=== PATIENT | male | born 1940 | race Caucasian/White ===

== ENCOUNTER 2016-09-19 08:58 | Outpatient (CLI) ==
[2016-09-19 13:50] VITALS: BMI 35.8
== END 2016-09-19 08:59 ==
LOC: AMBL 08:58
PROVIDERS: ATTEND Emergency Medicine
DX: R11.2 Nausea with vomiting, unspecified (principal)

== ENCOUNTER 2016-09-19 09:08 | Inpatient (IN) ==
--- NOTE | 2016-09-19 09:34 | ED.PDOC ---
General ED Provider: Dr. OLGA LIDIA ATKINS JR Chief Complaint: Respiratory Complaint Stated Complaint: 3 days cough, sore throat, nasal congestion, vomiting today; EMS martina prehosp now improved 99.0 83 20 93% 143/62 810 took peptobismol at home Time Seen by Physician: 09:32 Mode of Arrival: Ambulance Information Source: Patient, Family, EMT Exam Limitations: No limitations Primary Care Provider: GLENIS JONAS Nursing and Triage Documentation Reviewed and Agree: No Review of Systems - Review Of Systems Constitutional: Reports: Fever, Malaise Eyes: Reports: No symptoms Ears, Nose, Mouth, Throat: Reports: Nose pain, Nose discharge, Throat pain Respiratory: Reports: Cough, Other Cardiac: Reports: No symptoms GI: Reports: Diarrhea, Nausea, Vomiting (abd. soft with tenderness to right lower quadrant on palpation.[ End ) : Reports: No symptoms Musculoskeletal: Reports: No symptoms Skin: Reports: No symptoms Neurological: Reports: No symptoms Endocrine: Reports: No symptoms Hematologic/Lymphatic: Reports: No symptoms All Other Systems: Other Past Medical History - Past Medical History Previously Healthy: No Endocrine: Reports: Unknown, Other Cardiovascular: Reports: Unknown Respiratory: Reports: Unknown Hematological: Reports: Unknown Gastrointestinal: Reports: Unknown Genitourinary: Reports: Unknown Neuro/Psych: Reports: Unknown Musculoskeletal: Reports: Unknown Cancer: Reports: Unknown - Surgical History General Surgical History: Reports: Cholecystectomy (gallbladder), Orthopedic ( right knee surgery), Unknown - Family History Family History: Reports: Unknown - Social History Smoking Status: Former smoker Hx Substance Use: No Alcohol Screening: Occasionally Physical Exam - Physical Exam Appearance: Ill-appearing, Obese Ill-appearing: Moderate Pain Distress: Moderate Eyes: LAURA, EOMI, Conjunctiva clear ENT: Ears normal, Nose normal, Oropharynx normal Neck: Supple Respiratory: Airway patent, Breath sounds diminished, Rhonchi Cardiovascular: RRR, Pulses normal, No rub, No murmur GI/: Soft, Nontender, No masses, Bowel sounds normal, No Organomegaly Musculoskeletal: Normal strength, ROM intact, No edema, No calf tenderness Skin: Warm, Dry, Normal color Neurological: Sensation intact, Motor intact, Reflexes intact, Cranial nerves intact, Alert, Oriented Psychiatric: Affect appropriate, Mood appropriate Interpretation - Radiology Interpretation Radiology Interpretation By: Radiologist Radiology Results: Positive Exam Interpreted: CXR (patchy infiltrate right medial base) Radiology Interpretation By: Radiologist Radiology Results: Negative Exam Interpreted: CT Scan (abdomen with RLL PNEUMONIA) - EKG Interpretation Time of EKG #1: 10:00 Rate: Normal Rhythm: Sinus Ectopy: PVCs, PACs Colver: NL ST Segment: Normal Critical Care Note - Critical Care Note Total Time (mins): 10 Course - Course Hematology/Chemistry: 09/19/16 09:50 09/19/16 09:50 Orders, Labs, Meds: Lab Review 09/19/16 09/19/16 09:45 09:50 WBC 18.37 H RBC 4.46 L Hgb 14.8 Hct 43.0 MCV 96.4 H MCH 33.2 H MCHC 34.4 RDW Coeff of [place] 13.4 Plt Count 191 Immature Gran % (Auto) 0.6 Neut % (Auto) 90.5 Lymph % (Auto) 3.7 L Preble % (Auto) 5.1 Eos % (Auto) 0.0 Baso % (Auto) 0.1 Immature Gran # (Auto) 0.1 Neut # 16.6 H Lymph # 0.7 Preble # 0.9 Eos # 0.0 Baso # 0.0 Sodium 133 L Potassium 4.0 Chloride 99 Carbon Dioxide 21 L Anion Gap 17.0 BUN 19 H Creatinine 1.06 Estimated GFR (MDRD) 68.00 BUN/Creatinine Ratio 17.92 Glucose 178 H Calcium 9.8 Total Bilirubin 1.56 H AST 24 ALT 18 Alkaline Phosphatase 89 Total Protein 7.7 Albumin 3.2 L Globulin 4.5 Albumin/Globulin Ratio 0.71 Amylase 26 Lipase 6 L H. pylori IgG Antibody Positive Influenza A (Rapid) Negative Influenza B (Rapid) Negative Orders Category Date Time Status EKG-(ED ONLY) Stat CARDIO 09/19/16 09:42 Completed NEBULIZER TREATMENT Stat CARDIO 09/19/16 11:14 Completed ED IV/MEDIPORT/POWERPORT .ONCE EMERGENCY 09/19/16 09:43 Active AMYLASE Stat LAB 09/19/16 09:50 Completed CBC W/ AUTO DIFF Stat LAB 09/19/16 09:50 Completed COMPREHENSIVE METABOLIC PANEL Stat LAB 09/19/16 09:50 Completed H. PYLORI SCREEN Stat LAB 09/19/16 09:50 Completed LIPASE Stat LAB 09/19/16 09:50 Completed MOLECULAR GROUP A STREP Stat LAB 09/19/16 10:14 Results PROCALCITONIN Stat LAB 09/19/16 Completed RAPID FLU A/B Stat LAB 09/19/16 09:45 Completed RAPID FLU A/B Stat LAB 09/19/16 10:13 Uncollected STREP SCREEN Stat LAB 09/19/16 10:14 Results URINALYSIS C & S IF INDICATED Stat LAB 09/19/16 09:43 Uncollected 0.9 % Sodium Chloride [Saline Flush] MEDS 09/19/16 09:43 Active 1 syr IVF PRN PRN Acetaminophen [Tylenol] MEDS 09/19/16 10:42 Discontinued 650 mg PO ONCE STA Ceftriaxone Sodium [Rocephin] MEDS 09/19/16 11:49 Discontinued 1 gm .ROUTE .STK-MED ONE Ceftriaxone Sodium [Rocephin] 1 gm MEDS 09/19/16 11:33 Discontinued 0.9 % Sodium Chloride [Sodium Chloride] 50 ml IV ONCE Ipratropium/Albuterol Neb [Duoneb] MEDS 09/19/16 11:14 Discontinued 1 vial NEB ONCE STA Sodium Chloride 0.9% [Sodium Chloride] 1,000 ml MEDS 09/19/16 09:44 Discontinued IV BOLUS CHEST, 2 VIEWS PA & LAT Stat RADS 09/19/16 09:[address] ABDOMEN/PELVIS WO CONTRAST Stat RADS 09/19/16 09:42 Completed Medications Generic Name Dose Route Start Last Admin Trade Name Freq PRN Reason Stop Dose Admin Sodium Chloride 1 syr 09/19/16 09:43 09/19/16 12:03 Saline Flush IVF 1 syr PRN PRN Administration To flush IV Discontinued Medications Generic Name Dose Route Start Last Admin Trade Name Freq PRN Reason Stop Dose Admin Acetaminophen 650 mg 09/19/16 10:42 09/19/16 11:57 Tylenol PO 09/19/16 10:43 650 mg ONCE STA Administration Albuterol/Ipratropium 1 vial 09/19/16 11:14 09/19/16 11:28 Duoneb NEB 09/19/16 11:15 1 vial ONCE STA Administration Sodium Chloride 1,000 mls @ 1,000 mls/hr 09/19/16 09:44 09/19/16 10:28 Sodium Chloride IV 09/19/16 10:43 1,000 mls/hr BOLUS STA Administration Ceftriaxone Sodium 1 gm/ 50 mls @ 75 mls/hr 09/19/16 11:33 09/19/16 11:58 Sodium Chloride IV 09/19/16 12:12 75 mls/hr ONCE STA Administration Vital Signs: Temp Pulse Resp BP Pulse Ox 09/19/16 09:09 99.0 F 83 20 143/62 H 93 L Departure - Departure Time of Disposition: 13:00 Disposition: ADMITTED INPATIENT Discharge Problem: Right lower lobe pneumonia Condition: Fair Pt referred to PMD for follow-up: Yes Allergies/Adverse Reactions: Allergies codeine Adverse Reaction (Verified 09/19/16 09:15) morphine Adverse Reaction (Verified 09/19/16 09:15) Home Medications: Ambulatory Orders Allopurinol 300 mg PO DAILY 07/06/15 Aspirin [Aspirin Chewable] 81 mg PO DAILYWM 07/06/15 Folic Acid 1 mg PO DAILY 07/06/15 Levothyroxine Sodium [Synthroid] 75 mcg PO QDAC 07/07/15
[2016-09-19] MEDS ORDERED: SODIUM CHLORIDE 1,000 ML IV STA (09:44)
[2016-09-19 10:01] LABS: BASOPHILS % (AUTO) 0.1 % (0.0-3.0); HEMOGLOBIN 14.8 g/dl (14.0-18.0); IMMATURE GRANULOCYTE % (AUTO) 0.6 % (0.0-5.0); LYMPHOCYTES # (AUTO) 0.7 K/uL (0.60-3.4); LYMPHOCYTES % (AUTO) 3.7 (10.0-50.0); MEAN CORPUSCULAR HEMOGLOBIN 33.2 pg (27.0-31.0); MEAN CORPUSCULAR HGB CONC 34.4 (31.8-35.4); MEAN CORPUSCULAR VOLUME 96.4 fl (80.0-94.0); MONOCYTES # (AUTO) 0.9 K/uL (0.4-2.0); MONOCYTES % (AUTO) 5.1 (0-10); NEUTROPHILS # (AUTO) 16.6 K/ul (2.0-6.9); NEUTROPHILS % (AUTO) 90.5; PLATELET COUNT 191 10^3/uL (140-440); RED BLOOD COUNT 4.46 10^6/ul (4.70-6.10); WHITE BLOOD COUNT 18.37 K/ul (4.2-10.2)
[2016-09-19 10:13] LABS: H. PYLORI ANTIBODY POSITIVE (NEGATIVE); H.PYLORI INTERNAL QC INTERNAL QC VALID
[2016-09-19 10:21] LABS: FLU INTERNAL QC INTERNAL QC VALID; RAPID FLU A NEGATIVE (NEGATIVE); RAPID FLU B NEGATIVE (NEGATIVE)
[2016-09-19 10:26] LABS: ALBUMIN 3.2 g/dL (3.4-5.0); ALBUMIN/GLOBULIN RATIO 0.71; BILIRUBIN,TOTAL 1.56 mg/dL (0.00-1.20); BUN/CREATININE RATIO 17.92; CALCIUM 9.8 mg/dL (8.2-10.2); CREATININE 1.06 mg/dL (0.60-1.10); TOTAL PROTEIN 7.7 g/dL (5.8-8.1)
--- NOTE | 2016-09-19 10:34 | DI ---
Examination: Two views of the chest. HISTORY: Cough. COMPARISON: 08/22/2015. FINDINGS: The patient is rotated to the right. Cardiomediastinal silhouette appears largely unchan ged in overall size and configuration given likely rotation. Minimal patchy opacity is suspected at the right medial base. There is no other definitive focal pulmonary infiltrate. There is no signi ficant pleural fluid. Osseous structures are without significant abnormalities. IMPRESSION: Exam somewhat limited by rotation. Patchy opacity at the right medial base likely localizing posteriorly on the lateral view. May repr esent developing pneumonia. Recommend follow-up exam to ensure resolution. Prominent right mediastinum may be due to rotation.
[2016-09-19] MEDS ORDERED: TYLENOL PO STA (10:42)
--- NOTE | 2016-09-19 10:50 | CT ---
EXAM: CT ABDOMEN AND PELVIS HISTORY: Right lower quadrant pain, history of cholecystectomy. Nausea and vomiting. TECHNIQUE: CT abdomen and pelvis without intravenous contrast. Images were reconstructed using 5 m m section thickness. Reformations were prepared. COMPARISON: 07/06/2015 FINDINGS: Diagnostic limitations exist without including contrast enhanced images. No obvious focal hepatic o r splenic lesions. Gallbladder is absent. Severe fatty replacement of the pancreas. No adrenal no dule is obvious. Mild nonspecific bilateral perinephric fat stranding. Both kidneys have a few pun ctate internal densities which could represent vascular calcifications or tiny calculi. There is no hydronephrosis or evidence of ureteral obstruction/calculus. Mild atherosclerotic disease of the a chadd. Tiny sliding hiatal hernia. Normal appendix. Unremarkable bowel gas pattern. Urinary bladder is n ormal. Minimal prominence of the prostate gland. No ascites. There is a small fatty right inguina l hernia with a transverse neck of about 1.4 cm, questionable current clinical significance. Mildly prominent fatty left inguinal canal. Bones demonstrate degenerative facet and disc disease of the lower spine. Lung bases have mild consolidations bilaterally, more noticeable on the right. No pne umoperitoneum. IMPRESSION: 1. Lung base consolidations more noticeable on the right suggesting pneumonia. 2. Post cholecystectomy state. No gallbladder fossa abnormality. 3. Tiny sliding hiatal hernia. 4. Small fatty right inguinal hernia, questionable clinical significance. 5. Fatty replacement of the pancreas.
[2016-09-19] MEDS ORDERED: DUONEB NEB STA (11:14)
[2016-09-19] MEDS ORDERED: ROCEPHIN 1 GM in SODIUM CHLORIDE 50 ML IV STA (11:33)
[2016-09-19] MEDS ORDERED: ROCEPHIN ONE (11:49)
[2016-09-19] MEDS ORDERED: TYLENOL PO PRN (13:01)
[2016-09-19] MEDS ORDERED: ROBITUSSIN AC SYRUP PO PRN (13:08)
[2016-09-19 13:50] VITALS: BMI 35.8
[2016-09-19] MEDS: SODIUM CHLORIDE 1,000 ML IV SCH (14:46)
[2016-09-19] MEDS: ZITHROMAX 500 MG in SODIUM CHLORIDE 250 ML IV SCH (14:46)
[2016-09-19 16:40] LABS: BILIRUBIN,URINE 2+ (NEGATIVE); KETONES,URINE 1+ (NEGATIVE); LEUKOCYTE ESTERASE ,URINE Negative (NEGATIVE); NITRITE,URINE Negative (NEGATIVE); PH,URINE 5.5 (5-9); PROTEIN,URINE 1+ (NEGATIVE); URINE, BLOOD Trace-lysed (NEGATIVE)
[2016-09-19 16:41] LABS: ADD URINE MICROSCOPIC YES
[2016-09-19 16:51] LABS: BACTERIA,URINE TRACE (NOT PRESENT)
[2016-09-19] MEDS: ZOFRAN 4 MG/2 ML IVP PRN ×2 (16:57→22:00)
[2016-09-19] MEDS: ALBUTEROL 0.083% NEB NEB SCH ×2 (17:22→23:03)
[2016-09-20] MEDS: SODIUM CHLORIDE 1,000 ML IV SCH (03:23)
[2016-09-20] MEDS: ZOFRAN 4 MG/2 ML IVP PRN ×2 (03:30→09:05)
[2016-09-20] MEDS ORDERED: SODIUM CHLORIDE 1,000 ML IV SCH (04:40)
[2016-09-20 04:57] LABS: BASOPHILS % (AUTO) 0.2 % (0.0-3.0); HEMATOCRIT 38.7 % (42.0-52.0); HEMOGLOBIN 13.3 g/dl (14.0-18.0); IMMATURE GRANULOCYTE % (AUTO) 0.7 % (0.0-5.0); LYMPHOCYTES # (AUTO) 1.1 K/uL (0.60-3.4); LYMPHOCYTES % (AUTO) 5.4 (10.0-50.0); MEAN CORPUSCULAR HEMOGLOBIN 34.2 pg (27.0-31.0); MEAN CORPUSCULAR HGB CONC 34.4 (31.8-35.4); MEAN CORPUSCULAR VOLUME 99.5 fl (80.0-94.0); MONOCYTES # (AUTO) 1.5 K/uL (0.4-2.0); MONOCYTES % (AUTO) 7.8 (0-10); NEUTROPHILS # (AUTO) 16.9 K/ul (2.0-6.9); NEUTROPHILS % (AUTO) 85.9; PLATELET COUNT 186 10^3/uL (140-440); RED BLOOD COUNT 3.89 10^6/ul (4.70-6.10); WHITE BLOOD COUNT 19.63 K/ul (4.2-10.2)
[2016-09-20] MEDS: ALBUTEROL 0.083% NEB NEB SCH (05:09)
[2016-09-20 05:22] LABS: ALBUMIN 2.8 g/dL (3.4-5.0); ALBUMIN/GLOBULIN RATIO 0.68; ANION GAP 15.1; BILIRUBIN,TOTAL 0.96 mg/dL (0.00-1.20); BUN/CREATININE RATIO 17.69; CALCIUM 9.2 mg/dL (8.2-10.2); CREATININE 1.13 mg/dL (0.60-1.10); POTASSIUM 4.1 mmol/L (3.5-5.1); TOTAL PROTEIN 6.9 g/dL (5.8-8.1)
[2016-09-20] MEDS ORDERED: SYNTHROID PO SCH (06:30)
[2016-09-20] MEDS ORDERED: ASPIRIN CHEWABLE PO SCH (08:00)
[2016-09-20] MEDS: ZITHROMAX 500 MG in SODIUM CHLORIDE 250 ML IV SCH (08:13)
[2016-09-20] MEDS ORDERED: ROCEPHIN 1 GM in SODIUM CHLORIDE 50 ML IV SCH (09:00)
[2016-09-20] MEDS ORDERED: NON-FORMULARY MEDICATION (Allopurinol [Allopurinol] 300 MG) PO SCH ×22 (09:00)
[2016-09-20] MEDS ORDERED: ZYLOPRIM PO SCH (09:00)
[2016-09-20] MEDS ORDERED: FOLIC ACID PO SCH (09:00)
[2016-09-20 10:41] VITALS: BP 100/50; TEMP 98.8
[2016-09-20 10:54] LABS: TROPONIN I 0.055 ng/ml (0.0000-0.4000)
[2016-09-20 10:57] LABS: CREATINE KINASE MB 7.4 ng/ml (0.0-3.6)
--- NOTE | 2016-09-20 13:28 | HP ---
SOURCE: The source of this information is prior knowledge of Kamar, review of his current chart, his office records as well as discussion with he; all considered reliable. PATIENT PROFILE: Mr. Bonner is a 76-year-old male resident of [place]; he was cooperative. CHIEF COMPLAINT: "I keep getting sicker." BRIEF HISTORY OF PRESENT ILLNESS: He visited with family in [place] around [place]. He developed nasal congestion and a cough. He came home after being there one-half of a week and for the last two weeks at home he has had cough and fatigue/malaise. At times, he would feel somewhat better and even at times he would feel like he was running a fever. Two days prior to admission, he started having intermittent vomiting. This was with a tendency toward constipation with no real diarrhea or significant abdominal pain. He called the day of admission and before we could work him in he presented to the ER. He was felt to have pneumonia based clinically on the fact that he was coughing and his chest x-ray was suspicious for something on the right early on. This gentleman did have pneumonia in his left lung in July/August of last year; chest x-rays were followed and did go to resolution. He smoked from age 20, greater than one pack per day stopping at age 28. He was raised around smoking but after leaving home at around age 22 , secondary smoke stopped. He has no known chronic lung disease. PAST HISTORY: CHILDHOOD: Unremarkable. ALLERGIES/INTOLERANCE: CODEINE (HEADACHE), MORPHINE (NAUSEA) CURRENT MEDICATIONS: 1. Folic acid 1 mg a day 2. Aspirin 81 mg a day 3. Allopurinol 300 mg a day 4. Synthroid 75 mcg a day 5. B12 1000 mcg/cc 1 cc intramuscularly each month HOSPITALIZATIONS/SURGERIES/PROCEDURES: He had colonoscopy with hiatal hernia and diverticular disease [facility], 04/06; a colonoscopy with polyps, [facility], Dr. Johnson 07/17/11 to repeat in five years and ERCP with sphincterotomy, [facility], 01/26/12. He had right knee arthroscopic meniscus tear/repair, [facility], 2005; lap gallbladder, Dr. Caceres", [facility], 01/25/12. He was hospitalized at [facility] 01/23/12 through 01/27/12 for his gallbladder disease; Dr. Fuller admitted him to [facility], 07/06 through 07/09/15 for left lower lobe pneumonia. FAMILY HISTORY: Heart disease in father; diabetes in sister and maternal uncle; breast cancer in paternal aunt, lung cancer in father and maternal uncle and unknown cancer in maternal aunt. HABITS: Smoker age 20, greater than one pack per day stopping age 28 with secondhanded smoke through his childhood stopping at age 22. Alcohol from age 20 a couple of times a week, no ilicit drugs. 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 He has two adopted children. REVIEW OF SYSTEMS: GENERAL: He has been fatigued. There has been no injury. INTEGUMENT: No open sores or rash. HEENT: Some diffuse headache, no visual change. NECK: No pain or mass. CHEST: No hemoptysis or orthopnea. CARDIOVASCULAR: No palpitations, exertional chest pain, ankle edema. GI: No melena, hematochezia. : No dysuria. MUSCULOSKELETAL/NEUROLOGIC: No swollen, sore or red joints. Neurologic: No weakness of extremities. PSYCHIATRIC: No confusion or memory loss. PHYSICAL EXAMINATION: VITALS: Temperature 98, pulse 75, respiratory rate 16, BP 102/75. GENERAL: Appropriate for age, well-kept white male who seems fatigued but in no acute distress. INTEGUMENT: Male pattern baldness. Eyegrounds are pink, non icteric sclerae. No ankle edema. HEENT: Facial asymmetry. Pupils equal, round, extraocular movements intact. NECK: No visible lymphadenopathy, thyromegaly, mass seen or felt and supple. CHEST: A few scattered crackles particularly the right; no dullness to percussion. CARDIOVASCULAR: S1, S2 without murmur or carotid bruits. Distal pulses intact. GI: Soft. No rebound, guarding, mass or tenderness. MUSCULOSKELETAL/NEUROLOGIC: Four quadrant movements of all extremities are equal. There is facial symmetry. Speech is clear. He is alert, oriented times three. ASSESSMENT/PROBLEM LIST: 0. 77-year-old white male - advanced age. 1. Allergies/intolerance - See above. 2. Procedural history - see above. 3. Family history - see above. 4. Hemorrhoidal disease on colonoscopy. 5. Diverticular disease on colonoscopy. 6. Colon polyp disease on colonoscopy. 7. Gastroesophageal reflux - clinical suspicion. 8. Fatty liver by labs. 9. Elevated fasting glucose being followed. 10. History of gout. 11. Hyperuricemia - Xyloprim treated. 12. Macrocytosis - B12 deficiency. 13. B12 deficiency - IM replaced. 14. Urolithiasis history. 15. Psoriasis. 16. Vitamin D deficiency. 17. Obesity. 18. Degenerative joint disease - diffuse. 19. Spinal degenerative joint disease. 20. Chronic low back pain - on and off. REASON FOR ADMISSION: # Nausea # Nausea and vomiting # Cough (fever and others) # Pneumonia - would be community acquired ([place] do [place]) # Fatigue PLAN: 1. IV fluids to assure hydration. 2. Daily labs for awhile and order as needed and adjust as needed. 3. Rocephin and Azithromax, i.e. the antibiotics commonly used for community acquired pneumonia. 4. Consider serial chest x-rays and as needed. 5. Try to maintain stability of other chronic problems or new issues that might arise. 6. Discharge planning from the onset; home and once he is afebrile, eating well and feeling better. MTDD
--- NOTE | 2016-09-25 08:54 | DS ---
PATIENT PROFILE: Mr. oBnner is a 76-year-old male resident of [place]; he was cooperative. CHIEF COMPLAINT: "I keep getting sicker." BRIEF HISTORY OF PRESENT ILLNESS: He visited with family in [place] around [place]. He developed nasal congestion and a cough. He came home after being there one-half of a week and for the last two weeks at home he has had cough and fatigue/malaise. At times, he would feel somewhat better and even at times he would feel like he was running a fever. Two days prior to admission, he started having intermittent vomiting. This was with a tendency toward constipation with no real diarrhea or significant abdominal pain. He called the day of admission and before we could work him in he presented to the ER. He was felt to have pneumonia based clinically on the fact that he was coughing and his chest x-ray was suspicious for something on the right early on. This gentleman did have pneumonia in his left lung in July/August of last year; chest x-rays were followed and did go to resolution. He smoked from age 20, greater than one pack per day stopping at age 28. He was raised around smoking but after leaving home at around age 22 , secondary smoke stopped. He has no known chronic lung disease. PAST HISTORY: CHILDHOOD: Unremarkable. ALLERGIES/INTOLERANCE: CODEINE (HEADACHE), MORPHINE (NAUSEA) CURRENT MEDICATIONS: 1. Folic acid 1 mg a day 2. Aspirin 81 mg a day 3. Allopurinol 300 mg a day 4. Synthroid 75 mcg a day 5. B12 1000 mcg/cc 1 cc intramuscularly each month HOSPITALIZATIONS/SURGERIES/PROCEDURES: He had colonoscopy with hiatal hernia and diverticular disease [facility], 04/06; a colonoscopy with polyps, [facility], Dr. Johnson 07/17/11 to repeat in five years and ERCP with sphincterotomy, [facility], 01/26/12. He had right knee arthroscopic meniscus tear/repair, [facility], 2005; lap gallbladder, Dr. Caceres", [facility], 01/25/12. He was hospitalized at [facility] 01/23/12 through 01/27/12 for his gallbladder disease; Dr. Fuller admitted him to [facility], 07/06 through 07/09/15 for left lower lobe pneumonia. FAMILY HISTORY: Heart disease in father; diabetes in sister and maternal uncle; breast cancer in paternal aunt, lung cancer in father and maternal uncle and unknown cancer in maternal aunt. HABITS: Smoker age 20, greater than one pack per day stopping age 28 with secondhand smoke through his childhood stopping at age 22. Alcohol from age 20 a couple of times a week, no ilicit drugs. 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 He has two adopted children. REVIEW OF SYSTEMS: GENERAL: He has been fatigued. There has been no injury. INTEGUMENT: No open sores or rash. HEENT: Some diffuse headache, no visual change. NECK: No pain or mass. CHEST: No hemoptysis or orthopnea. CARDIOVASCULAR: No palpitations, exertional chest pain, ankle edema. GI: No melena, hematochezia. : No dysuria. MUSCULOSKELETAL/NEUROLOGIC: No swollen, sore or red joints. Neurologic: No weakness of extremities. PSYCHIATRIC: No confusion or memory loss. PHYSICAL EXAMINATION: VITALS: Temperature 98, pulse 75, respiratory rate 16, BP 102/75. GENERAL: Appropriate for age, well-kept white male who seems fatigued but in no acute distress. INTEGUMENT: Male pattern baldness. Eyegrounds are pink, non icteric sclerae. No ankle edema. HEENT: Facial asymmetry. Pupils equal, round, extraocular movements intact. NECK: No visible lymphadenopathy, thyromegaly, mass seen or felt and supple. CHEST: A few scattered crackles particularly the right; no dullness to percussion. CARDIOVASCULAR: S1, S2 without murmur or carotid bruits. Distal pulses intact. GI: Soft. No rebound, guarding, mass or tenderness. MUSCULOSKELETAL/NEUROLOGIC: Four quadrant movements of all extremities are equal. There is facial symmetry. Speech is clear. He is alert, oriented times three. ASSESSMENT/PROBLEM LIST: 0. 77-year-old white male - advanced age. 1. Allergies/intolerance - See above. 2. Procedural history - see above. 3. Family history - see above. 4. Hemorrhoidal disease on colonoscopy. 5. Diverticular disease on colonoscopy. 6. Colon polyp disease on colonoscopy. 7. Gastroesophageal reflux - clinical suspicion. 8. Fatty liver by labs. 9. Elevated fasting glucose being followed. 10. History of gout. 11. Hyperuricemia - Zyloprim treated. 12. Macrocytosis - B12 deficiency. 13. B12 deficiency - IM replaced. 14. Urolithiasis history. 15. Psoriasis. 16. Vitamin D deficiency. 17. Obesity. 18. Degenerative joint disease - diffuse. 19. Spinal degenerative joint disease. 20. Chronic low back pain - on and off. REASON FOR ADMISSION: # Nausea # Nausea and vomiting # Cough (fever and others) # Pneumonia - would be community acquired ([place] do [place]) # Fatigue HOSPITAL COURSE: This gentleman was admitted and treated as a community acquired pneumonia with nebulized bronchodilators, IV antibiotics with Rocephin and oral Zithromax. He had some initial weakness when he was up; suggestion for orthostasis and he was given a 500 cc of fluid bolus (in addition to 1000 cc he received in the ER). He slept through most of the night. The nursing staff notified me about 9 a.m. that he was found on shift change to be hypoxic into the mid 80s. He was having tachycardia of atrial fibrillation with rapid ventricular response (this is new) and he was having jaw or shoulder pain. I went promptly to the hospital and found his hemodynamics to be stable and with oxygen supplementation him to be adequately oxygenating. His initial white count of 18 climbed to 19. His hemoglobin of 14.8 with fluids dropped to 13.3; note MCVs were slightly elevated. Repeat chemistries showed a GFR of 63 vs 68; his chemistries were actually unremarkable. His troponin was negative though his CK- MB was 7.4 and high. His EKG showed nothing otherwise acute. We transferred him to the Special Care Unit and started making arrangements for transfer to [facility]. We were very concerned that in addition to his rate driven jaw and chest pain that there might be more going on than just that; that we could end up needing invasive cardiology and pulmonary to become involved. Also note on admission his urine has specific gravity greater than 1.030 and his flu A and B were negative. H. Pylori IgG was incidentally positive. His chest x-ray showed nothing here acute. DISCHARGE ASSESSMENT/PROBLEM LIST (CHANGED FROM ADMISSION): # Pneumonia - right-sided early infiltrate with fever and others - appears community acquired # Nausea and vomiting - associated with # Fatigue - associated with # Dehydration - suspect (specific gravity 1.030 and others) # Hypotension - orthostasis # New atrial fibrillation # Tachycardia - of atrial fib # Chest pain (and others) - suggestive for angina equivalent PLAN: 1. Transfer to CCU at [facility] for direct admit PROGNOSIS: Guarded; condition stable. MTDD
== END 2016-09-20 10:25 | disposition short-term general hospital (02) | DRG 195 ==
LOC: ED 09:08 → MEDSURG A 12:47 → SCU 09-20 09:41
PROVIDERS: ADMIT Family Medicine; ATTEND Family Medicine
DX: J18.9 Pneumonia, unspecified organism (principal); R11.2 Nausea with vomiting, unspecified; R10.813 Right lower quadrant abdominal tenderness; R53.83 Other fatigue; B96.81 Helicobacter pylori [H. pylori] as the cause of diseases classified elsewhere; E86.0 Dehydration; I95.1 Orthostatic hypotension; R07.9 Chest pain, unspecified; R68.84 Jaw pain; I48.91 Unspecified atrial fibrillation; R09.02 Hypoxemia; R00.0 Tachycardia, unspecified; I20.9 Angina pectoris, unspecified; Z79.899 Other long term (current) drug therapy; Z87.01 Personal history of pneumonia (recurrent)
CPT/HCPCS: 36415; 80053; 81001; 82150; 82550; 82553; 83690; 84145; 84443; 84484; 85025; 86677; 87651; 87804; 87880; 93005; 93010; 94640; 96374; 99284

== ENCOUNTER 2016-09-20 10:30 | Outpatient (CLI) ==
[2016-09-19 13:50] VITALS: BMI 35.8
== END 2016-09-20 10:31 | disposition home or self-care (01) ==
LOC: AMBL 10:30
PROVIDERS: ATTEND Internal Medicine
DX: R07.9 Chest pain, unspecified (principal); I48.91 Unspecified atrial fibrillation; J18.9 Pneumonia, unspecified organism; R06.02 Shortness of breath; R06.6 Hiccough; R14.2 Eructation; R11.0 Nausea

== ENCOUNTER 2016-10-04 10:33 | Outpatient (CLI) ==
--- NOTE | 2016-10-04 11:06 | DI ---
EXAM: PA and lateral views of the chest HISTORY: Left lung pneumonia COMPARISON: Chest x-ray 09/19/2016 FINDINGS: The cardiomediastinal silhouette is normal. There is no pneumothorax or pleural effusion . Interval resolution of right lower lobe ground-glass consolidation. There is ground-glass and ai rway thickening in the lower lobe of the left lung. There is no consolidation, nodule or mass. The osseous structures are unremarkable. IMPRESSION: Minimal airway thickening and ground-glass in the left lower lobe suggestive of small airways inflam mation/infection. The right lower lobe ground-glass consolidation from prior exam has resolved.
== END 2016-10-04 10:34 | disposition home or self-care (01) ==
LOC: RAD 10:33
PROVIDERS: ATTEND Family Medicine
DX: J18.9 Pneumonia, unspecified organism (principal)

== ENCOUNTER 2018-06-07 11:12 | Emergency (ER) ==
[2018-06-07 11:13] VITALS: BMI 35.8
[2018-06-07 11:25] VITALS: BP 108/67; TEMP 99.7
--- NOTE | 2018-06-07 12:12 | CT ---
EXAM: CT scan of the abdomen and pelvis without contrast HISTORY: Abdominal pain, no bowel movements TECHNIQUE: Helical imaging of the abdomen pelvis was performed without contrast. 3 mm thin axial im ages and coronal and sagittal reconstructions were provided for interpretation. FINDINGS: The patient has had previous cholecystectomy. The pancreas, adrenal glands appear normal. The proximal ureters are normal size. The small bowel loops are normal caliber. There is no bowel wall thickening. There is mild dilatation of the transverse colon and descending colon and sigmoid colon and rectum by fecal material. There is no free air. The appendix appears normal. The helical images obtained through the pelvis demonstrate a normal appearance of the rectum, urinary bladder. There is no free fluid seen within the pelvis. Lung bases are clear. No lytic or blastic lesions are seen within the osseous structures. IMPRESSION: There is no bowel obstruction or acute inflammatory change seen within the abdomen and p lala. There is no ureteral obstruction. Mild constipation. Nonobstructing nephrolithiasis seen within the right kidney.
--- NOTE | 2018-06-07 12:29 | ED.PDOC ---
General ED Provider: Dr. COLLINS CUELLAR Chief Complaint: Abdominal Pain Stated Complaint: NO B.M. AND ABDOMINAL PAINX 4 DAYS HAS BEEN ON PAIN MEDS WHICH HE STOPPED Time Seen by Physician: 11:19 (SEEN WITH THE PT'S NURSE ) Mode of Arrival: Walk-In Information Source: Patient Exam Limitations: No limitations Primary Care Provider: GLENIS JONAS Nursing and Triage Documentation Reviewed and Agree: Yes Does patient meet sepsis criteria?: No System Inflammatory Response Syndrome: Not Applicable Sepsis Protocol: For patient's 13 years and over: Temp is 96.8 and below OR 101 and greater Pulse >90 BPM Resp >20/minute Acutely Altered Mental Status Are patient's symptoms suggestive of a new infection, such as: -Pneumonia -Skin, Soft Tissue -Endocarditis -UTI -Bone, Joint Infection -Implantable Device -Acute Abdominal Infection -Wound Infection -Meningitis -Blood Stream Catheter Infection -Unknown GI Complaint Exam - Abdominal Pain Complaint/Exam Onset: Gradual Duration: 3 TO 4 DAYS Symptoms Are: Still present Timing: Constant Initial Severity: Moderate Current Severity: Mild Location of Pain: Diffuse Character: Reports: Dull Aggravating: Reports: None Alleviating: Reports: None Associated Signs and Symptoms: Reports: Constipation. Denies: Diaphoresis, Fever, Cough, Chest pain, Dizziness, Back pain, Blood in stool, Dysuria, Urinary frequency, Decreased urine output, Decreased appetite, Discharge, Nausea , Vomiting, Diarrhea, Decreased activity AAA Risk Factors: Reports: None Cardiac Risk Factors: Reports: None Testicular Torsion Risk Factors: Reports: None Surgical Obstruction Risk Factors: Reports: None Related Surgical History: Reports: None Abdominal Findings: Present: None Differential Diagnoses: Constipation Review of Systems - Review Of Systems Constitutional: Reports: No symptoms Eyes: Reports: No symptoms Ears, Nose, Mouth, Throat: Reports: No symptoms Respiratory: Reports: No symptoms Cardiac: Reports: No symptoms GI: Reports: Abdominal pain, Constipated : Reports: No symptoms Musculoskeletal: Reports: No symptoms Skin: Reports: No symptoms Neurological: Reports: No symptoms Endocrine: Reports: No symptoms Hematologic/Lymphatic: Reports: No symptoms All Other Systems: Reviewed and Negative Past Medical History - Past Medical History Previously Healthy: No Endocrine: Reports: Unknown, Other Cardiovascular: Reports: Unknown Respiratory: Reports: Unknown Hematological: Reports: Unknown Gastrointestinal: Reports: Unknown Genitourinary: Reports: Unknown Neuro/Psych: Reports: Unknown Musculoskeletal: Reports: Unknown Cancer: Reports: Unknown - Surgical History General Surgical History: Reports: Cholecystectomy (gallbladder), Orthopedic ( right knee surgery), Unknown - Family History Family History: Reports: Unknown - Social History Smoking Status: Former smoker Hx Substance Use: No Alcohol Screening: Occasionally Physical Exam - Physical Exam Appearance: Well-appearing, No pain distress, Well-nourished Eyes: LAURA, EOMI, Conjunctiva clear ENT: Ears normal, Nose normal, Oropharynx normal Respiratory: Airway patent, Breath sounds clear, Breath sounds equal, Respirations nonlabored Cardiovascular: RRR, Pulses normal, No rub, No murmur GI/: Soft, Nontender, No masses, Bowel sounds normal, No Organomegaly Musculoskeletal: Normal strength, ROM intact, No edema, No calf tenderness Skin: Warm, Dry, Normal color Neurological: Sensation intact, Motor intact, Reflexes intact, Cranial nerves intact, Alert, Oriented Psychiatric: Affect appropriate, Mood appropriate Interpretation - Radiology Interpretation Radiology Interpretation By: Radiologist Radiology Results: No acute changes Critical Care Note - Critical Care Note Total Time (mins): 0 Course - Course Orders, Labs, Meds: Orders Category Date Time Status CT ABDOMEN/PELVIS WO CONTRAST Stat RADS 06/07/18 11:42 Completed Vital Signs: Temp Pulse Resp BP Pulse Ox 06/07/18 11:13 99.7 F H 110 H 20 108/67 94 L Departure - Departure Time of Disposition: 12:29 Disposition: HOME SELF-CARE Discharge Problem: Abdominal pain Instructions: Constipation (ED), Constipation (DC) Condition: Good Pt referred to PMD for follow-up: Yes IPMP verified?: No Additional Instructions: Please call your Family Physician as soon as possible to schedule a follow-up appointment. Allergies/Adverse Reactions: Allergies codeine Adverse Reaction (Verified 09/19/16 09:15) hydrocodone Adverse Reaction (Verified 06/07/18 11:25) morphine Adverse Reaction (Verified 09/19/16 09:15) Home Medications: Ambulatory Orders Allopurinol 300 mg PO DAILY 07/06/15 Aspirin [Aspirin Chewable] 81 mg PO DAILYWM 07/06/15 Folic Acid 1 mg PO DAILY 07/06/15 Levothyroxine Sodium [Synthroid] 75 mcg PO QDAC 07/07/15 Omeprazole 20 mg PO DAILY 06/07/18 Disposition Discussed With: Patient, Family
== END 2018-06-07 12:42 | disposition home or self-care (01) ==
LOC: ED 11:12
DX: R10.9 Unspecified abdominal pain (principal); K59.00 Constipation, unspecified
CPT/HCPCS: 99282

== ENCOUNTER 2018-06-11 08:58 | Outpatient (CLI) | END 2018-06-11 09:21 | disposition short-term general hospital (02) | LOC: AMBL 08:58 → EDSTATUS 12:45 | PROVIDERS: ATTEND Internal Medicine | DX: R11.2 Nausea with vomiting, unspecified (principal); R53.1 Weakness; R10.84 Generalized abdominal pain; I48.91 Unspecified atrial fibrillation ==

== ENCOUNTER 2018-06-12 13:05 | Outpatient (CLI) | END 2018-06-12 13:29 | disposition short-term general hospital (02) | LOC: AMBL 13:05 | PROVIDERS: ATTEND Internal Medicine | DX: R11.2 Nausea with vomiting, unspecified (principal); R53.1 Weakness; K59.00 Constipation, unspecified; R94.5 Abnormal results of liver function studies; R50.9 Fever, unspecified; R17 Unspecified jaundice; R06.02 Shortness of breath ==

== ENCOUNTER 2018-10-05 09:28 | Day surgery (SDC) ==
[2018-10-05] MEDS ORDERED: LIDOCAINE 1% 20 ML MDV ID STA (10:09)
[2018-10-05 10:14] VITALS: TEMP 97.6
[2018-10-05] MEDS ORDERED: SUBLIMAZE ONE (11:30)
[2018-10-05] MEDS ORDERED: VERSED ONE (11:30)
[2018-10-05] MEDS ORDERED: DIPRIVAN 20 ML VIAL IVP ONE (11:30)
[2018-10-05 13:01] VITALS: BP 125/69
--- NOTE | 2018-10-06 09:00 | OP ---
PROCEDURE: COLONOSCOPY TO THE CECUM. ENDOSCOPIST: Sang LALA M.D. INDICATION: HISTORY OF POLYPS INSTRUMENT: [id number]. MEDICATION: PER ANESTHESIA. PROCEDURE: The patient was positioned for colonoscopy. The digital rectal exam was negative. The colonoscope was inserted through the anus and advanced to the cecum. The cecum was identified using the ileocecal valve and the appendiceal orifice as landmarks. The scope was slowly withdrawn through an adequately prepped colon. [place] Bowel Prep Score equals 9. The exam was normal throughout. No evidence for polyp or mass. Retroflex exam was otherwise normal. The patient tolerated the procedure well without immediate complication. Withdraw time 9 minutes and 40 seconds. PLAN: 1. Suggest repeat colonoscopy for routine evaluation in 5 years. CC: Dr. Taj JAIN
== END 2018-10-05 12:50 | disposition home or self-care (01) ==
LOC: SURG 09:28
PROVIDERS: ATTEND Internal Medicine Gastroenterology
DX: Z86.010 Personal history of colon polyps (principal)
CPT/HCPCS: 00812; G0105

== ENCOUNTER 2018-10-23 13:07 | Outpatient (CLI) ==
--- NOTE | 2018-10-23 14:48 | DEXA ---
EXAM: Bone densitometry. History: Osteoporosis. Findings: Evaluation of the lumbar spine reveals a total bone mineral density of 0.979 grams per centimeter squ ared with T-score of negative 2.0. Evaluation of the left hip reveals a total bone mineral density of 0.794 grams per centimeter squared with T-score of negative 2.1. Evaluation of the right hip reveals a total bone mineral density of 0.782 grams per centimeter square d with T-score of negative 2.2. FRAX: 10-year probability for major osteoporotic fracture is 8.4% and 3.1% for hip fracture. Impression: Osteopenia of the lumbar spine and bilateral hips
== END 2018-10-23 13:08 | disposition home or self-care (01) ==
LOC: RAD 13:07
PROVIDERS: ATTEND Family Medicine
DX: M81.0 Age-related osteoporosis without current pathological fracture (principal); R29.6 Repeated falls; T14.8XXA Other injury of unspecified body region, initial encounter

== ENCOUNTER 2018-11-07 16:25 | Inpatient (IN) ==
[2018-11-07 17:09] VITALS: BMI 35.4
[2018-11-08] MEDS: SYNTHROID PO SCH (06:06)
[2018-11-08] MEDS: CALCIUM 500 + VIT D 200 MG TABLET PO SCH (08:33)
[2018-11-08] MEDS: ASPIRIN CHEWABLE PO SCH (08:33)
[2018-11-08] MEDS: COLACE PO SCH (08:34)
[2018-11-08] MEDS: ZYLOPRIM PO SCH (08:34)
[2018-11-08] MEDS: PRILOSEC PO SCH (08:34)
[2018-11-08] MEDS: FOLIC ACID PO SCH (08:34)
[2018-11-08] MEDS: NON-FORMULARY MEDICATION (Cyanocobalamin (Vitamin B-12) [Vitamin B12] 2,500 MCG) PO SCH (08:35)
[2018-11-08] MEDS ORDERED: VIT D3 PO SCH (09:00)
[2018-11-08] MEDS ORDERED: CALCIUM CARB CITRATE PO SCH (09:00)
[2018-11-08] MEDS ORDERED: NON-FORMULARY MEDICATION (Allopurinol [Allopurinol] 300 MG) PO SCH (09:00)
[2018-11-08] MEDS: TYLENOL PO PRN ×2 (13:26→22:56)
[2018-11-08] MEDS ORDERED: NORCO 5-325 PO PRN (18:04)
[2018-11-09] MEDS: SYNTHROID PO SCH (05:46)
[2018-11-09] MEDS: PRILOSEC PO SCH (05:46)
--- NOTE | 2018-11-09 08:21 | RS.PTINEVL ---
Subjective - Patient information Date of Evaluation: 11/08/18 Date of Arrival on Unit: 11/07/18 Admitted From:: Facility Transfer (transfer from [facility] for swing bed program) Diagnosis: OA L knee, s/p L TKR Usual Living Arrangement: With Spouse Living Arrangement Comments: Lives with spouse Home Environment: House, Level/No stairs, Rail Medical History: Hypertension, Arthritis (OA and gout) Medical History Comments:: dJD, cardiac arrhythmia, hypothyroidism, osteopenia, psoriasis, R wrist rx 3 weeks ago s/p fall LATEX ALLERGY?: No Surgical History: Knee Replacement (L TKR 11/03/18), Cholecystectomy Surgical History Comments:: R knee meniscus surgery, Medications: see chart Subjective Information/ Patient Comments:: pt states that he walked a good distance yesterday prior to dc from [facility] - Level of function Prior to this admission, the patient could do the following:: Independent Selfcare, Independent ADL's, Independent Ambulation, Drive Current Level of Function: Partially Dependent Current Equipment Used at Home: has a rollator rwx at home Pain Assessement - Location L knee Description: Sharp, Aching Intensity: 4 (increased to 6/10 with activity) Pain Behavior: Rubbing Site, Facial Grimacing Pain Aggravating Factors: Exercise/Activity, Standing, Walking Pain Alleviating Factors: Ice, Medication Interventions - Objective Patient Orientation: Person, Place, Time, Situation Observation: pt with sutures in place, no exudate noted from incicion, pitting edema LLE. Range of Motion - ROM Right Upper Extremity AROM: WFL's (except R wrist ROM) Left Upper Extremity AROM: WFL's Right Lower Extremity AROM: WFL's Left Lower Extremity AROM: Moderate limitation (L knee flex 82 ext -14) Muscle Strength - Muscle Strength Right Upper Extremity Strength: Mild Weakness (shld flex 4+/5, elbow flex/ext 4+ /5 wrist not tested due to fx) Left Upper Extremity Strength: Normal Right Lower Extremity Strength: Normal (grossly 5/5) Left Lower Extremity Strength: Mild Weakness (hip flex 4/5, knee flex/ext 3-/5, ankle DF/PF 4/5) Sensation - Sensation Right Upper Extremity Sensation: Intact/Normal Left Upper Extremity Sensation: Intact/Normal Right Lower Extremity Sensation: Intact/Normal Left Lower Extremity Sensation: Intact/Normal Palpation Palpation Findings: Tenderness (L knee) Balance - Sitting Balance and Reactions Static Sitting Balance: Good Dynamic Sitting Balance: Fair - Standing Balance and Reactions Static Standing Balance: Fair Dynamic Standing Balance: Poor Standing Equilibrium Reactions: Delayed Left, Delayed Right Standing Protective Reactions: Delayed Left, Delayed Right Functional Mobility - Bed Mobility Rolling R/L: Min Assist Scooting: Min Assist Supine to Sit: Min Assist - Transfers Sit to Stand: Min Assist, 1 person assist - Safety Awareness Safety Awareness: Good SHAHNAZ INDEX SCORE: 56 Ambulation - Ambulation Assistive Device Used: Platform Walker (platform rolling walker) Orthotic/Prosthetic Device: No Distance: 100ft Assistance needed with Ambulation: CGA, Min Assist, 1 person assist Gait Deviations: Forward posture, Short stride Ambulation Comments: pt with decreased heel strike toe off gait pattern Factors Affecting Ambulation: Decreased Balance, Pain, Weakness, Decreased ROM, Decreased Safety Treatment time - Units charged Gait trainin - Time with patient Length of Evaluation: 23 Total treatment time: 46 Patient Education - Education Patient Education: Activity Modification, Education of Plan of Care Teaching Recipient: Patient Teaching Methods: Discussion (discussion regarding POC) Assessment - Assessment Problem List:: Decreased level of function, Requires training/education, Decreased safety/Risk of falls, Weakness, Pain limits previous level of function Rehab Potential: Good Further Therapy Indicated?: Yes Candidate for Swing Bed for Therapy Services?: pt is a swing bed patient Evaluation Complexity: HISTORY: Medium, EXAM OF BODY SYSTEMS: Medium, CLINICAL PRESENTATION: Medium, CLINICAL DECISION MAKING: Medium Short Term Goals GOAL #1: Improve L knee ROM flex 90 ext -8 Goal to be met by: 11/13/18 GOAL #2: pt demonstrate rolling and scooting up in bed independently Goal to be met by: 11/13/18 GOAL #3: Transfer sup to/from sit CGA Goal to be met by: 11/13/18 GOAL #4: Sit to/from stand CGA Goal to be met by: 11/13/18 GOAL #5: pt amb with platform rwx 140ft with CGA with improved heel strike Goal to be met by: 11/13/18 Desk Sergeant Goals GOAL #1: Improve L knee flex 98 ext 0 Goal to be met by: 11/18/18 GOAL #2: Transfer sup to/from sit to/from stand SBA Goal to be met by: 11/18/18 GOAL #3: amb functional household distances w platform rwx SBA, up/down steps CGA Goal to be met by: 11/18/18 Plan Plan of Care: Therapeutic EX, Therapeutic Activity Other:: gait training Frequency of Treatment: 1-2 X day, as tolerated Duration of Treatment: 10 days Anticipated Discharge Destination: Home Treatment Diagnosis (ICD 10 Codes): s/p L TKR. R26.2 difficulty walking. R 26.81 balance impaired. M62.81 general weakness Has the Physician been added for Co-signature?: Yes
[2018-11-09] MEDS: ASPIRIN CHEWABLE PO SCH (08:48)
[2018-11-09] MEDS: COLACE PO SCH (08:49)
[2018-11-09] MEDS: NON-FORMULARY MEDICATION (Cyanocobalamin (Vitamin B-12) [Vitamin B12] 2,500 MCG) PO SCH (08:49)
[2018-11-09] MEDS: ZYLOPRIM PO SCH (08:49)
[2018-11-09] MEDS: CALCIUM 500 + VIT D 200 MG TABLET PO SCH (08:49)
[2018-11-09] MEDS: FOLIC ACID PO SCH (08:49)
--- NOTE | 2018-11-09 13:56 | RS.OTINEVL ---
Subjective - Patient information Date of Evaluation: 11/09/18 Date of Arrival on Unit: 11/07/18 Admitted From:: Facility Transfer Usual Living Arrangement: With Spouse Living Arrangement Comments: Pt lives with spouse in his house. Pt has a ramp and 2 steps to come into the back door. Pt has a corner walk in shower that he will use when he gets home. Medical History Comments:: Gallbladder surgery, psoriasis, osteoporosis, atrial fib., cholecystectomy, GERD, DJD, R wrist fracture, L TKA. Surgical History: Knee Replacement, Other (Gall bladder removed.) Surgical History Comments:: Gallbladder, Right meniscus repair, ERCP 2018, L TKA , cholecystectomy Subjective Information/ Patient Comments:: "I fractured this wrist 2 weeks ago before the surgery." - Level of function Prior to this admission, the patient could do the following:: Independent Selfcare, Independent ADL's, Independent Ambulation, Drive Abilities prior to this admission: Patient independent with self care management, walked independently and drove. Current Level of Function: Partially Dependent Current Equipment Used at Home: has a rollator rwx at home Pain Assessment - Pain Pain Score: 8 Side: left Pain Location Body Site: Knee Pain Aggravating Factors: Changing Position, Exercise/Activity, Sitting, Walking Pain Alleviating Factors: Ice, Medication Interventions - Objective Patient Orientation: Person, Place, Time, Situation Current Interventions: IV's Observation: Pt has edema of the LLE, has SOA with activity, does not like to stand very long. Pt has difficulty with bed mobility. Interventions - ROM Right Upper Extremity AROM: WFL's Left Upper Extremity AROM: WFL's - Strength Right Upper Extremity Strength: Mild Weakness Left Upper Extremity Strength: Mild Weakness - Sensation Right Upper Extremity Sensation: Intact/Normal Left Upper Extremity Sensation: Intact/Normal Balance - Sitting Balance Static Sitting Balance: Good Dynamic Sitting Balance: Good - Standing Balance Static Standing Balance: Fair Dynamic Standing Balance: Fair ADL Skills - Self Feeding Self Feeding: Supervision - Grooming Grooming: Min Assist - Bathing Bathing UE: Not Tested Bathing LE: Not Tested - Dressing Dressing UE: Independent Dressing LE: Max Assist, 1 person assist - Toilet Management Toileting Management: Min Assist, 1 person assist Functional Mobility - Bed Mobility Rolling R/L: CGA Scooting: Min Assist Supine to Sit: Min Assist Sit to Supine: Min Assist - Transfers Sit to Stand: Min Assist, 1 person assist Stand to Sit: Min Assist, 1 person assist Stand Pivot Transfers: Min Assist, 1 person assist - Ambulation Weight Bearing Status: FWB Assistive Device Used: Platform Walker Assistance needed with Ambulation: Min Assist - Safety Awareness Safety Awareness: Good SHAHNAZ INDEX SCORE: 62 Additional Treatment Performed - Additional units charged ADL: 19 - Time with patient Length of Evaluation: 25 Total treatment time: 44 Activities Do you enjoy playing games?: Yes Would you be interested in leaving your room for activities?: Yes Would you enjoy group activities?: Yes Do you have difficulty with your vision?: Yes What types of things do you enjoy doing? Any Hobbies?: TV, running cars, Patient Interests:: Reading Books/Magazines, Watching Television, Visiting/ Socializing Patient Education Patient Education: Education of diagnosis, Education of Plan of Care Teaching Recipient: Patient Teaching Methods: Discussion Assessment Problem List:: Decreased level of function, Requires training/education, Decreased safety/Risk of falls, Weakness, Pain limits previous level of function Rehab Potential: Good Further Therapy Indicated?: Yes Candidate for Swing Bed for Therapy Services?: He is in swing bed. Evaluation Complexity: HISTORY: Medium, EXAM OF BODY SYSTEMS: Medium, CLINICAL DECISION MAKING: Medium Short Term Goals - Goals GOAL 1: Pt to increase dyn. std. balance for sink level ADLS to Fair+. Goal to be met by: 11/13/18 GOAL 2: Pt to increase I of self care management to CGA. Goal to be met by: 11/13/18 GOAL 3: Pt to increase activity tolerance to 15 minutes for safety of self cares. Goal to be met by: 11/13/18 Penitentiary Goals GOAL 1: Pt to increase dyn. std. balance for sink level ADLS to Good-. Goal to be met by: 11/20/18 GOAL 2: Pt to increase I of self care management to Mod-I. Goal to be met by: 11/20/18 GOAL 3: Pt to increase activity tolerance to 20 minutes for safety of self cares. Goal to be met by: 11/20/18 Plan Plan of Care: Therapeutic EX, Neuromuscular Re-Educ, Therapeutic Activity, Self- Care/Home Management Modalities: Cold Pack/Cryotherapy Frequency of Treatment: 1-2 X day, as tolerated Duration of Treatment: 2 Weeks Anticipated Discharge Destination: Home Treatment Diagnosis (ICD 10 Codes): M62.81 Muscle weakness, Z74.1 Need for assistance with personal care. Has the Physician been added for Co-signature?: Yes
[2018-11-10] MEDS: PRILOSEC PO SCH (05:37)
[2018-11-10] MEDS: SYNTHROID PO SCH (05:38)
[2018-11-10] MEDS: TYLENOL PO PRN (07:29)
[2018-11-10] MEDS: COLACE PO SCH (08:19)
[2018-11-10] MEDS: CALCIUM 500 + VIT D 200 MG TABLET PO SCH (08:19)
[2018-11-10] MEDS: ASPIRIN CHEWABLE PO SCH (08:19)
[2018-11-10] MEDS: FOLIC ACID PO SCH (08:19)
[2018-11-10] MEDS: ZYLOPRIM PO SCH (08:19)
[2018-11-10] MEDS: NON-FORMULARY MEDICATION (Cyanocobalamin (Vitamin B-12) [Vitamin B12] 2,500 MCG) PO SCH (08:20)
[2018-11-10] MEDS: PERCOCET 5-325 PO PRN (21:01)
[2018-11-11] MEDS: SYNTHROID PO SCH (05:30)
[2018-11-11] MEDS: PRILOSEC PO SCH (05:30)
[2018-11-11] MEDS: FOLIC ACID PO SCH (09:22)
[2018-11-11] MEDS: COLACE PO SCH (09:22)
[2018-11-11] MEDS: ASPIRIN CHEWABLE PO SCH (09:22)
[2018-11-11] MEDS: ZYLOPRIM PO SCH (09:22)
[2018-11-11] MEDS: CALCIUM 500 + VIT D 200 MG TABLET PO SCH (09:23)
[2018-11-11] MEDS: NON-FORMULARY MEDICATION (Cyanocobalamin (Vitamin B-12) [Vitamin B12] 2,500 MCG) PO SCH (09:23)
[2018-11-11] MEDS: TYLENOL PO PRN (09:45)
[2018-11-11] MEDS: PERCOCET 5-325 PO PRN (20:57)
[2018-11-12] MEDS: SYNTHROID PO SCH (05:40)
[2018-11-12] MEDS: PRILOSEC PO SCH (05:41)
[2018-11-12] MEDS: CALCIUM 500 + VIT D 200 MG TABLET PO SCH (08:21)
[2018-11-12] MEDS: ASPIRIN CHEWABLE PO SCH (08:22)
[2018-11-12] MEDS: ZYLOPRIM PO SCH (08:22)
[2018-11-12] MEDS: FOLIC ACID PO SCH (08:22)
[2018-11-12] MEDS: COLACE PO SCH (08:22)
[2018-11-12] MEDS: NON-FORMULARY MEDICATION (Cyanocobalamin (Vitamin B-12) [Vitamin B12] 2,500 MCG) PO SCH (08:22)
--- NOTE | 2018-11-12 12:05 | DI ---
EXAM: Two views of the left knee. History: Left knee pain and swelling. Findings: No acute fracture or dislocation. Grossly intact left total knee arthroplasty hardware. Joint effusion is present. There is diffuse subcutaneous edema and anterior soft tissue swelling. Impression: 1. No acute osseous abnormality. 2. Grossly intact left total knee arthroplasty hardware. 3. Diffuse subcutaneous edema and anterior soft tissue swelling. 4. Joint effusion
--- NOTE | 2018-11-12 13:56 | US ---
EXAM: Left lower extremity venous Doppler. History: Left lower extremity pain and swelling. Technique: Multiple sonographic images through the left lower extremity were obtained. Color duplex Doppler was used to interrogate vascular flow. Findings: Partial flow with partial compression within the left superficial femoral vein. The rest of the left lower extremity venous structures demonstrate spontaneous flow with normal compression an d normal augmentation. Impression: Nonocclusive deep venous thrombosis involving the left superficial femoral vein. Critical results were given to Karen SHELBY by the technologist at the end of the examination.
[2018-11-12] MEDS: XARELTO PO SCH (16:57)
[2018-11-12] MEDS: MILK OF MAGNESIA PO PRN (22:25)
[2018-11-12] MEDS: PERCOCET 5-325 PO PRN (22:26)
[2018-11-13] MEDS: PRILOSEC PO SCH (06:04)
[2018-11-13] MEDS: SYNTHROID PO SCH (06:04)
[2018-11-13] MEDS: COLACE PO SCH (09:31)
[2018-11-13] MEDS: ZYLOPRIM PO SCH (09:31)
[2018-11-13] MEDS: FOLIC ACID PO SCH (09:33)
[2018-11-13] MEDS: XARELTO PO SCH ×2 (09:34→16:29)
[2018-11-13] MEDS: CALCIUM 500 + VIT D 200 MG TABLET PO SCH (09:35)
[2018-11-13] MEDS: NON-FORMULARY MEDICATION (Cyanocobalamin (Vitamin B-12) [Vitamin B12] 2,500 MCG) PO SCH (09:36)
[2018-11-13] MEDS: TYLENOL PO PRN ×2 (09:47→16:29)
[2018-11-13] MEDS: MILK OF MAGNESIA PO PRN (09:47)
[2018-11-13] MEDS: PERCOCET 5-325 PO PRN (22:42)
[2018-11-14] MEDS: SYNTHROID PO SCH (05:37)
[2018-11-14] MEDS: PRILOSEC PO SCH (05:37)
[2018-11-14] MEDS: XARELTO PO SCH ×2 (09:17→17:15)
[2018-11-14] MEDS: COLACE PO SCH (09:18)
[2018-11-14] MEDS: CALCIUM 500 + VIT D 200 MG TABLET PO SCH (09:18)
[2018-11-14] MEDS: ZYLOPRIM PO SCH (09:18)
[2018-11-14] MEDS: FOLIC ACID PO SCH (09:18)
[2018-11-14] MEDS: NON-FORMULARY MEDICATION (Cyanocobalamin (Vitamin B-12) [Vitamin B12] 2,500 MCG) PO SCH (09:19)
[2018-11-14] MEDS: TYLENOL PO PRN (09:26)
[2018-11-14] MEDS: PERCOCET 5-325 PO PRN (20:31)
[2018-11-15] MEDS: SYNTHROID PO SCH (05:44)
[2018-11-15] MEDS: PRILOSEC PO SCH (05:44)
[2018-11-15] MEDS: COLACE PO SCH (08:50)
[2018-11-15] MEDS: TYLENOL PO PRN ×2 (08:50→17:02)
[2018-11-15] MEDS: CALCIUM 500 + VIT D 200 MG TABLET PO SCH (08:51)
[2018-11-15] MEDS: ZYLOPRIM PO SCH (08:51)
[2018-11-15] MEDS: FOLIC ACID PO SCH (08:51)
[2018-11-15] MEDS: XARELTO PO SCH ×2 (08:52→17:02)
[2018-11-15] MEDS: NON-FORMULARY MEDICATION (Cyanocobalamin (Vitamin B-12) [Vitamin B12] 2,500 MCG) PO SCH (08:59)
[2018-11-15] MEDS: PERCOCET 5-325 PO PRN (21:10)
[2018-11-16] MEDS: PRILOSEC PO SCH (05:41)
[2018-11-16] MEDS: SYNTHROID PO SCH (05:41)
[2018-11-16] MEDS: ZYLOPRIM PO SCH (08:48)
[2018-11-16] MEDS: XARELTO PO SCH ×2 (08:49→18:02)
[2018-11-16] MEDS: COLACE PO SCH (08:49)
[2018-11-16] MEDS: CALCIUM 500 + VIT D 200 MG TABLET PO SCH (08:49)
[2018-11-16] MEDS: FOLIC ACID PO SCH (08:49)
[2018-11-16] MEDS: NON-FORMULARY MEDICATION (Cyanocobalamin (Vitamin B-12) [Vitamin B12] 2,500 MCG) PO SCH (08:57)
[2018-11-16] MEDS: PERCOCET 5-325 PO PRN ×2 (12:19→18:03)
[2018-11-17] MEDS: PRILOSEC PO SCH (05:48)
[2018-11-17] MEDS: SYNTHROID PO SCH (05:48)
[2018-11-17] MEDS: ZYLOPRIM PO SCH (09:14)
[2018-11-17] MEDS: TYLENOL PO PRN (09:14)
[2018-11-17] MEDS: CALCIUM 500 + VIT D 200 MG TABLET PO SCH (09:15)
[2018-11-17] MEDS: XARELTO PO SCH ×2 (09:15→16:50)
[2018-11-17] MEDS: FOLIC ACID PO SCH (09:15)
[2018-11-17] MEDS: COLACE PO SCH (09:15)
[2018-11-17] MEDS: NON-FORMULARY MEDICATION (Cyanocobalamin (Vitamin B-12) [Vitamin B12] 2,500 MCG) PO SCH (09:18)
[2018-11-17] MEDS: PERCOCET 5-325 PO PRN (20:34)
[2018-11-18] MEDS: PRILOSEC PO SCH (05:37)
[2018-11-18] MEDS: SYNTHROID PO SCH (05:37)
[2018-11-18] MEDS ORDERED: VITAMIN B-12 IM SCH (08:00)
[2018-11-18] MEDS: FOLIC ACID PO SCH (09:19)
[2018-11-18] MEDS: ZYLOPRIM PO SCH (09:20)
[2018-11-18] MEDS: XARELTO PO SCH ×2 (09:21→16:49)
[2018-11-18] MEDS: CALCIUM 500 + VIT D 200 MG TABLET PO SCH (09:21)
[2018-11-18] MEDS: COLACE PO SCH (09:21)
[2018-11-18] MEDS: NON-FORMULARY MEDICATION (Cyanocobalamin (Vitamin B-12) [Vitamin B12] 2,500 MCG) PO SCH (09:59)
[2018-11-18] MEDS: PERCOCET 5-325 PO PRN (20:35)
[2018-11-19] MEDS: PRILOSEC PO SCH (05:35)
[2018-11-19] MEDS: SYNTHROID PO SCH (05:35)
[2018-11-19] MEDS: CALCIUM 500 + VIT D 200 MG TABLET PO SCH (08:01)
[2018-11-19] MEDS: COLACE PO SCH (08:02)
[2018-11-19] MEDS: NON-FORMULARY MEDICATION (Cyanocobalamin (Vitamin B-12) [Vitamin B12] 2,500 MCG) PO SCH (08:02)
[2018-11-19] MEDS: FOLIC ACID PO SCH (08:02)
[2018-11-19] MEDS: ZYLOPRIM PO SCH (08:02)
[2018-11-19] MEDS: XARELTO PO SCH ×2 (08:03→16:41)
[2018-11-19] MEDS: PERCOCET 5-325 PO PRN (20:37)
[2018-11-20 05:30] VITALS: TEMP 97.9
[2018-11-20] MEDS: SYNTHROID PO SCH (05:49)
[2018-11-20] MEDS: PRILOSEC PO SCH (05:49)
[2018-11-20 06:05] VITALS: BP 117/69
[2018-11-20] MEDS: CALCIUM 500 + VIT D 200 MG TABLET PO SCH (08:37)
[2018-11-20] MEDS: ZYLOPRIM PO SCH (08:37)
[2018-11-20] MEDS: COLACE PO SCH (08:37)
[2018-11-20] MEDS: FOLIC ACID PO SCH (08:38)
[2018-11-20] MEDS: XARELTO PO SCH (08:38)
[2018-11-20] MEDS: NON-FORMULARY MEDICATION (Cyanocobalamin (Vitamin B-12) [Vitamin B12] 2,500 MCG) PO SCH (08:40)
== END 2018-11-20 16:15 | disposition home or self-care (01) | DRG 556 ==
LOC: MEDSURG B 16:25
PROVIDERS: ADMIT Family Medicine; ATTEND Family Medicine
DX: M25.562 Pain in left knee (principal); R26.89 Other abnormalities of gait and mobility; D64.9 Anemia, unspecified; R60.0 Localized edema; K59.00 Constipation, unspecified; Z79.01 Long term (current) use of anticoagulants
CPT/HCPCS: 36415; 80048; 80053; 85025; 87081; 97802

== ENCOUNTER 2018-12-11 13:12 | Outpatient (CLI) ==
--- NOTE | 2018-12-11 13:52 | US ---
EXAM: Left lower extremity venous Doppler History: Follow-up left lower extremity deep vein thrombosis Comparison: Left lower extremity venous Doppler 11/12/2018 Technique: Multiple sonographic images through the left lower extremity were obtained. Color duplex Doppler was used to interrogate vascular flow. Findings: The left common femoral, greater saphenous, profunda, superficial femoral, popliteal, maame luis enrique, posterior tibial and anterior tibial veins demonstrate spontaneous flow with normal compression and normal augmentation. Impression: No sonographic evidence for deep venous thrombosis.
== END 2018-12-11 13:13 | disposition home or self-care (01) ==
LOC: RAD 13:12
PROVIDERS: ATTEND Family Medicine
DX: Z51.81 Encounter for therapeutic drug level monitoring (principal); Z79.01 Long term (current) use of anticoagulants; Z86.718 Personal history of other venous thrombosis and embolism; R60.0 Localized edema; M79.604 Pain in right leg; Z98.890 Other specified postprocedural states

== ENCOUNTER 2018-12-28 13:39 | Outpatient (RCR) ==
--- NOTE | 2018-12-29 09:56 | RS.OPPTEV2 ---
Date of Note: 12/28/18 Visit #: 1 Number of visits approved by Insurance: n/a Date of Evaluation: 12/28/18 Payer Source: MEDICARE ([place]) Surgery Performed?: Yes (L TKR 11/03/18) Treatment Diagnosis: OA aftercare following total knee joint replacement History of Condition/Mechanism of Injury:: pt underwent L TKR per Dr. Simons 11/03/18. pt came to swing bed program and then returned home with home health PT. Prior Level of Function.....Patient was independent with: ADL's, Self Care, Ambulation/Mobility, Community Integration/Access Level of Function: pt lives with , is retired. Lives in home with several steps (split level home) Functional Limitations: Squatting, Ambulation Current Subjective/complaints:: pt states that he is doing pretty well, has been able to amb without the cane for a few days now. Treatment Side (optional): Left *Precautions: n/a Medical History Medical History: Hypertension, Arthritis (OA and gout) Medical History Comments:: psoriasis Surgical History: Knee Replacement, Cholecystectomy, Other (Gall bladder removed.) Surgical History Comments:: Right meniscus repair, ERCP 2018, L TKA Smoking Status: Current some day smoker Hx Home Medications: acetaminophen, allopurinol, aspirin, calcium carb- cholecalciferol, cyanocobalamin, folic acid, levothyroxine, omeprazole, oxycodone-acetaminophen, rivaroxaban, Patient's Goals: be stronger Pain Assessment - Pain Description Pain Location: L knee Pain Description: Aching Pain Description: 1-2 Functional Outcome Measure LE Functional Scale: 40 - G Codes & Severity Modifier G Codes & Modifier: n/a Source of G Code score: n/a Observation - Observation Inspection: pt presents with 2+ pitting edema BLE L worse than R Posture: Forward Head, Rounded Shoulders, Increased Thoracic Kyphosis Girth Measurement Lower: LLE knee 54cm, 10 cm below knee 48cm, 10 cm above knee 58 cm Gait - Gait Pattern General Gait Pattern Observation: Antalgic Gait Gait Comments: pt amb without AD with antalgic gait with decreased heel strike/ toe off, decreased L knee flex, increased lat sway. General Range of Motion: BUE WFL's. RLE WFL's. L hip and ankle WFL's Muscle Strength: BUE 5/5. RLE 5/5. LLE hip flex 4/5, ankle DF/PF 4/5 Knee ROM: Right WFL's Knee Muscle Strength: Right WFL's - Left Knee ROM Left Knee Extension: -8 Left Knee Flexion: 101 Knee ROM Limitations: Soft Tissue Tightness, Muscle Weakness - Left Knee Strength Left Knee Extension: 3- Fair- Left Knee Flexion: 3- Fair- Palpation Palpation Findings: Tenderness Comments:: in area of incision Sensation - Sensation Right Upper Extremity: Intact/Normal Left Upper Extremity: Intact/Normal Right Lower Extremity: Intact/Normal Left Lower Extremity: Intact/Normal Balance - Sitting Balance Static Sitting Balance: Normal Dynamic Sitting Balance: Normal - Standing Balance Static Standing Balance: Good Dynamic Standing Balance: Fair - Comments Balance Assessment Comments: gait speed: 0.72meters/sec consistent with limited community ambulator. dyn gait index: consistent with fall risk. Interventions - Exercise/Activities/Manual Therapy Exercises/Activities: pt performed quad sets with heel elevated, LAQ, SLR, standing heel raises, standing high stepping, and forward lunges. Manual Therapy: n/a HOME EXERCISE PROGRAM: pt given written HEP including: quad sets with heel elevated, standing heel raises, forward lunges - Charges Timed Code Treatment Minutes: 52 Total Treatment Time: 61 Procedures billed for this date of service:: chloe dillon, ex EVALUATION COMPLEXITY LEVEL EVALUATION COMPLEXITY LEVEL: HISTORY: Low, EXAM OF BODY SYSTEMS: Medium, CLINICAL PRESENTATION: Low, CLINICAL DECISION MAKING: Low Assessment Assessment: pt presents with pain L knee, decreased ROM, strength, balance as well as decreased gait sequencing. Feel pt would benefit from skilled PT for therex for ROM L knee as well as strengthening with a focus on balance as well as gait sequencing. Patient Education: Home Exercise Program, Education of Plan of Care Rehab Potential: Good Short Term Goals Goal #1: pt independent with initial HEP Goal to be met by: 01/11/19 Goal #2: L knee ext -5, flex 104 Goal to be met by: 01/11/19 Goal #3: Improve L LE strength 4-/5 Goal to be met by: 01/11/19 Goal #4: Improve dyn stand balance as noted by dyn gait index score Goal to be met by: 01/11/19 Skilled Nursing Goals Goal #1: pt amb with improved heel strike/toe off gait pattern no LOB Goal to be met by: 01/25/19 Goal #2: pt with improved gait speed to 0.9 m/s consistent with community ambulator Goal to be met by: 01/25/19 Goal #3: Improve dyn gait index score 21/24 consistent with low risk of falls Goal to be met by: 01/25/19 Goal #4: L knee ROM WFL's Goal to be met by: 01/25/19 Plan - Treatment to be Provided Procedures: Therapeutic Exercises, Therapeutic Activity, Gait Training, Manual Therapy, Massage, Patient Education Modalities: Cryotherapy, Hot Packs - Treatment Plan Frequency: 2 X week Duration: 4 weeks Dates of Pharmacologist Goals: 01/25/19 Expiration date of current Insurance Approval:: n/a - Treatment Code (1) Left knee pain Code(s): M25.562 - PAIN IN LEFT KNEE Qualifiers: Chronicity: chronic Qualified Code(s): M25.562 - Pain in left knee; G89.29 - Other chronic pain (2) Aftercare following left knee joint replacement surgery Code(s): Z47.1 - AFTERCARE FOLLOWING JOINT REPLACEMENT SURGERY; Z96.652 - PRESENCE OF LEFT ARTIFICIAL KNEE JOINT (3) Joint stiffness of knee Qualifiers: Laterality: left Qualified Code(s): M25.662 - Stiffness of left knee, not elsewhere classified (4) Gait difficulty Code(s): R26.9 - UNSPECIFIED ABNORMALITIES OF GAIT AND MOBILITY
== END 2018-12-29 23:59 ==
PROVIDERS: ATTEND Family Medicine
DX: R26.9 Unspecified abnormalities of gait and mobility (principal); Z98.890 Other specified postprocedural states; Z96.652 Presence of left artificial knee joint

== ENCOUNTER 2018-12-30 09:58 | Outpatient (RCR) ==
--- NOTE | 2018-12-30 11:41 | RS.OPPTDN ---
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 *Precautions: n/a Pain Assessment - Pain Description Pain Location: L knee Pain Description: Dull, Aching, Chronic Current Pain Intensity: 1-2/10 Interventions - Exercise/Activities/Manual Therapy Exercises/Activities: 50 mins. total,beginning on exercise bike x 5 mins. ,then progressed to bilateral leg press,1/15 each @ 75,90,105#,then 3/10 with L LE only @ 45 #.Supine exercises of QS,SAQ,.SLR.90/90 hamstring stretches .L knee AROM is 102,107 with stretch.Extension is -8 degrees. Total minutes of Exercise: 50 Manual Therapy: n/a Total minutes of Manual Therapy: 0 HOME EXERCISE PROGRAM: pt given written HEP including: quad sets with heel elevated, standing heel raises, forward lunges - Charges Timed Code Treatment Minutes: 45 Total Treatment Time: 5 Procedures billed for this date of service:: ex 3 Assessment: Patient has increased knee flexion at end of session after fatiguing the quads.He has moderate tightness in the L hamstrings today, improves after multiple reps. of contract-relax.We discussed to focus on the hamstring tightness to improve the knee extension ,and decreased the risk of leg length discrepancy. Patient Education: Home Exercise Program, Education of Plan of Care Patient demonstrates compliance with HEP?: Yes Short Term Goals Goal #1: pt independent with initial HEP Goal to be met by: 01/11/19 Progress towards Goal:: Progressing Goal #2: L knee ext -5, flex 104 Goal to be met by: 01/11/19 Progress towards Goal:: Progressing Goal #3: Improve L LE strength 4-/5 Goal to be met by: 01/11/19 Goal #4: Improve dyn stand balance as noted by dyn gait index score Goal to be met by: 01/11/19 Local Superintendent Goals Goal #1: pt amb with improved heel strike/toe off gait pattern no LOB Goal to be met by: 01/25/19 Goal #2: pt with improved gait speed to 0.9 m/s consistent with community ambulator Goal to be met by: 01/25/19 Goal #3: Improve dyn gait index score consistent with low risk of falls Goal to be met by: 01/25/19 Goal #4: L knee ROM WFL's Goal to be met by: 01/25/19 Plan Dates of Local Superintendent Goals: 01/25/19 Expiration date of current Insurance Approval:: na PLAN: Cont. skilled PT to increase strength and AROM in the L knee.
--- NOTE | 2019-01-05 10:13 | RS.CXNS ---
Date of scheduled appointment: 01/05/19 Type: No Show Reason for Cancel/NS: possibly out of town
--- NOTE | 2019-01-08 09:54 | RS.CXNS ---
Date of scheduled appointment: 01/08/19 Type: No Show Reason for Cancel/NS: unknown
--- NOTE | 2019-01-20 11:59 | RS.CXNS ---
Date of scheduled appointment: 01/20/19 Type: No Show
--- NOTE | 2019-01-28 08:37 | RS.OPPTDC ---
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 pt with multiple no show visits. 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 Current Complaints/Gains: pt states he has appt card for 01/20/19 however this date was 01/27/19. pt appears somewhat confused regarding appt times as well as date. 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 - Charges Timed Code Treatment Minutes: n/a Total Treatment Time: n/a Procedures billed for this date of service:: n/a Assessment Assessment: pt did not meet goals due to only seen for eval and 1 visit. Goals not met. 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
== END 2019-01-29 23:59 ==
PROVIDERS: ATTEND Family Medicine
DX: Z47.1 Aftercare following joint replacement surgery (principal); Z96.652 Presence of left artificial knee joint; R26.9 Unspecified abnormalities of gait and mobility; Z98.890 Other specified postprocedural states

== ENCOUNTER 2023-06-01 21:28 | Observation (INO) ==
[2023-06-01] MEDS ORDERED: LACTATED RINGERS 1,000 ML IV STA (21:45)
[2023-06-01] MEDS ORDERED: ZOFRAN 4 MG/2 ML IVP STA (21:45)
--- NOTE | 2023-06-01 21:55 | ED.PDOC ---
General ED Provider: Dr. KAREY TELLES MD Chief Complaint: Nausea/Vomiting Stated Complaint: N/V for 3 days and cut short vacation in [place]. Family tested positive for COVID. Vomited 3x today and 3x yesterday, yellow liquid. Occasional sharp pain R side of abdomen. No diarrhea. Had some chest pain this AM. Also dizzy on standing mostly like may passes out. Some headache also. Hx of AFib, pacer, hemochromatosis with phlebotomy every 2 month. Had heart cath this year, no blockages. Somewhat thirsty. Time Seen by Provider: 06/01/23 21:43 Mode of Arrival: Ambulance Information Source: Patient and EMT Exam Limitations: No limitations Primary Care Provider: GLENIS VANG Referred to ED by: Other (family) Nursing and Triage Documentation Reviewed and Agree: Yes Review of Systems Review Of Systems Constitutional: Reports Weakness and Loss of appetite; Denies Chills, Diaphoresis or Fever Eyes: Reports No symptoms Ears, Nose, Mouth, Throat: Denies Throat pain Respiratory: Reports No symptoms Cardiac: Reports Chest pain GI: Reports Abdominal pain, Nausea and Vomiting; Denies Constipated or Diarrhea : Reports No symptoms Musculoskeletal: Reports No symptoms Skin: Reports No symptoms and Bruising Neurological: Reports No symptoms, Anxiety and Depressed All Other Systems: Reviewed and Negative [facility] Social History (Updated 06/02/23 @ 02:01 by DESTINEE DÍAZ RN) Smoking and tobacco status: Former smoker Tobacco: How many years used: 1 (smoked for 1.5 years quit 1967) Smoking status stop date: 04/20/1968 Alcohol intake: current Alcohol intake frequency: holidays/special occasions only Previous attempts at quittin (rare occasional social drink) Physical Exam Physical Exam Appearance: Reports Well-appearing and No pain distress Ill-appearing: Mild Pain Distress: None Eyes: Reports LAURA and EOMI ENT: Reports Nose normal and Oropharynx normal Neck: Supple Respiratory: Reports Airway patent, Breath sounds equal and Rhonchi; Denies Wheezes or Retractions Cardiovascular: Reports RRR, Pulses normal and No murmur GI/: Reports Soft, Nontender, No masses, Bowel sounds normal and No Organomegaly; Denies Tender Musculoskeletal: Reports Normal strength, ROM intact and Edema Skin: Reports Warm and Dry Neurological: Reports Sensation intact, Motor intact, Reflexes intact, Cranial nerves intact, Alert and Oriented Psychiatric: Reports Affect appropriate and Mood appropriate Interpretation EKG Interpretation EKG Interpretation By: ED Physician Time of EKG #1: 22:00 Rate: Normal Rhythm: Other (paced) Piru: Left Interpretation: Ventricular paced rhythm, Abnormal EKG Physician Notification Case Discussed Physician Notified: Glenis Vang Time of Notification: 00:17 Comments: Ok to admit to hospitalist for continue hydration Physician Notified: Moe Leach Time of Notification: 00:29 Comments: OK to admit; requested admitting orders. Time of Discussion: 00:30 Admit/Transition Orders Entered by ED Provider: Yes Admit To: Observation Critical Care Note Critical Care Note Total Critical Care Time (mins): 0 Course Course 06/01/23 21:44 06/01/23 21:44 Orders, Labs, Meds: Lab Review 06/01/23 06/01/23 06/01/23 21:44 21:45 23:16 WBC 3.61 L RBC 3.30 L Hgb 11.4 L Hct 35.6 L MCV 107.9 H MCH 34.5 H MCHC 32.0 RDW Coeff of Quoc 16.2 H Plt Count 139 L Immature Gran % (Auto) 0.3 Neut % (Auto) 72.2 Lymph % (Auto) 10.0 Cataño % (Auto) 17.2 H Eos % (Auto) 0.0 Baso % (Auto) 0.3 Neut # (Auto) 2.6 Lymph # (Auto) 0.4 L [place] # (Auto) 0.6 Eos # (Auto) 0.0 Baso # (Auto) 0.0 Immature Gran # (Auto) 0.0 Sodium 138.6 Potassium 4.10 Chloride 107.6 H Carbon Dioxide 23.7 Anion Gap 11.40 BUN 20.4 H Creatinine 1.16 H Estimated GFR (MDRD) 61.00 BUN/Creatinine Ratio 17.58 Glucose 152.8 H Calcium 9.33 Total Bilirubin 0.84 AST 33.7 ALT 21.2 Alkaline Phosphatase 75.4 Troponin I 0.021 NT-Pro-B Natriuret Pep Total Protein 7.61 Albumin 4.01 Globulin 3.60 Albumin/Globulin Ratio 1.11 Urine Color Yellow Urine Clarity Clear Urine pH 5.0 Ur Specific [place] >=1.030 Urine Protein 2+ H Urine Glucose (UA) Negative Urine Ketones Negative Urine Blood Trace-intact H Urine Nitrite Negative Urine Bilirubin 1+ H Urine Urobilinogen 2.0 H Ur Leukocyte Esterase Negative Urine Microscopic RBC 0-2 Ur Squamous Epith Cells Not present Urine Mucus Trace SARS CoV-2 RNA Rapid MALIKA 06/01/23 Unknown WBC RBC Hgb Hct MCV MCH MCHC RDW Coeff of [place] Plt Count Immature Gran % (Auto) Neut % (Auto) Lymph % (Auto) [place] % (Auto) Eos % (Auto) Baso % (Auto) Neut # (Auto) Lymph # (Auto) [place] # (Auto) Eos # (Auto) Baso # (Auto) Immature Gran # (Auto) Sodium Potassium Chloride Carbon Dioxide Anion Gap BUN Creatinine Estimated GFR (MDRD) BUN/Creatinine Ratio Glucose Calcium Total Bilirubin AST ALT Alkaline Phosphatase Troponin I NT-Pro-B Natriuret Pep 679 H Total Protein Albumin Globulin Albumin/Globulin Ratio Urine Color Urine Clarity Urine pH Ur Specific [place] Urine Protein Urine Glucose (UA) Urine Ketones Urine Blood Urine Nitrite Urine Bilirubin Urine Urobilinogen Ur Leukocyte Esterase Urine Microscopic RBC Ur Squamous Epith Cells Urine Mucus SARS CoV-2 RNA Rapid MALIKA Positive H Orders Category Date Time Status ADMIT OBSERVATION [PLACE PATIENT OBSERVATION] .TO ADMISSION 06/02/23 00:32 Active MEDSURG (NON-MONITORED BED) EKG-(ED ONLY) Stat CARDIO 06/01/23 21:44 Completed ACTIVITY .Up With Assistance CARE 06/02/23 00:32 Active INTAKE & OUTPUT Q8HR CARE 06/02/23 00:33 Active IP: INSERT SALINE LOCK ONCE CARE 06/02/23 00:33 Active NPO REMINDER: IMAGING ONCE CARE 06/01/23 21:47 Active VITAL SIGNS Q8HR CARE 06/02/23 00:33 Active REGULAR DIET DIETARY 06/02/23 Breakfast Ordered Orthostatic [ED ORTHOSTATIC VITAL SIGNS] .ONCE EMERGENCY 06/01/23 21:44 Active CBC W/ AUTO DIFF DAILY@0600 LAB 06/02/23 06:00 Ordered CBC W/ AUTO DIFF DAILY@0600 LAB 06/03/23 06:00 Ordered CBC W/ AUTO DIFF Stat LAB 06/01/23 21:44 Completed CMP [COMPREHENSIVE METABOLIC PANEL] Stat LAB 06/01/23 21:44 Completed COMPREHENSIVE METABOLIC PANEL DAILY@0600 LAB 06/02/23 06:00 Ordered COMPREHENSIVE METABOLIC PANEL DAILY@0600 LAB 06/03/23 06:00 Ordered COVID [SARS COV-2 RNA RAPID MALIKA] Stat LAB 06/01/23 Completed PROBNP ED [NT-PROBNP(ED)] Stat LAB 06/01/23 Completed TROPONIN I Stat LAB 06/01/23 21:45 Completed URINALYSIS C & S IF INDICATED Stat LAB 06/01/23 23:16 Completed Dexamethasone Sod Phosphate [Decadron] Meds 06/02/23 00:20 Discontinued 6 mg IVP ONCE ONE Ondansetron HCl/Pf [Zofran 4 mg/2 ml] Meds 06/01/23 21:45 Discontinued 4 mg IVP ONCE STA Ringers Lactated Solution [Lactated Ringers] 1,000 ml Meds 06/01/23 21:45 Discontinued IV 250 mls/hr RESUSCITATION STATUS Routine OTHERS 06/02/23 00:[address] ABDOMEN/PELVIS W CONTRAST Stat RADS 06/01/23 21:[address] HEAD W/O CONTRAST Stat RADS 06/01/23 21:45 Completed Medications Generic Name Dose Route Start Last Admin Trade Name Freq PRN Reason Stop Dose Admin Allopurinol 300 mg 06/02/23 09:00 Allopurinol 100 Mg Tablet PO DAILY [facility] Ascorbic Acid 500 mg 06/02/23 09:00 Ascorbic Acid 500 Mg Tablet PO BID [facility] Aspirin 81 mg 06/02/23 08:30 Aspirin 81 Mg Tab.Chew PO DAILY [facility] Calcium/Vitamin D 1 each 06/02/23 09:00 Calcium Carbonate/Vitamin D3 500 Mg/5 Mcg(200iu) 1 Each Tablet PO DAILY [facility] Cyanocobalamin 1,000 mcg 06/02/23 01:00 Cyanocobalamin (Vitamin B-12) 1,000 Mcg/Ml Vial IM MONTHLY [facility] Dexamethasone Sodium Phosphate 6 mg 06/02/23 09:00 Dexamethasone Sod Phos 4 Mg/Ml Inj IVP DAILY [facility] Docusate Sodium 100 mg 06/02/23 09:00 Docusate Sodium 100 Mg Capsule PO DAILY [facility] Lactated Ringer's 1,000 mls @ 100 mls/hr 06/02/23 00:37 06/02/23 01:30 Lactated Ringers IV 06/02/23 10:36 100 mls/hr .Q10H STA Administration Levothyroxine Sodium 75 mcg 06/02/23 06:30 Levothyroxine Sodium 75 Mcg Tablet PO DAILY@0630 [facility] Metoprolol Tartrate 25 mg 06/02/23 09:00 Metoprolol Tartrate 50 Mg Tablet PO BID [facility] Ondansetron HCl 4 mg 06/02/23 00:44 Ondansetron Hcl/Pf 4 Mg/2 Ml Sdv IVP Q6H PRN Nausea / Vomiting Pantoprazole Sodium 40 mg 06/02/23 09:00 Pantoprazole Sodium 40 Mg Vial IVP DAILY [facility] Rivaroxaban 20 mg 06/02/23 09:00 Rivaroxaban 10 Mg Tablet PO DAILY [facility] Discontinued Medications Generic Name Dose Route Start Last Admin Trade Name Freq PRN Reason Stop Dose Admin Dexamethasone Sodium Phosphate 6 mg 06/02/23 00:20 06/02/23 00:36 Dexamethasone Sod Phos 10 Mg/Ml Inj IVP 06/02/23 00:21 6 mg ONCE ONE Administration Lactated Ringer's 1,000 mls @ 250 mls/hr 06/01/23 21:45 06/01/23 22:04 Lactated Ringers IV 06/02/23 01:44 250 mls/hr .Q4H STA Administration Ondansetron HCl 4 mg 06/01/23 21:45 06/01/23 22:03 Ondansetron Hcl/Pf 4 Mg/2 Ml Sdv IVP 06/01/23 21:46 4 mg ONCE STA Administration Vital Signs: Temp Pulse Resp BP Pulse Ox 06/01/23 22:01 80 95/65 06/01/23 22:01 96 132/77 06/01/23 22:01 82 129/80 06/01/23 21:31 98.6 F 79 20 162/84 H 96 Still thirsty and still concerned about vomiting. Neg CT scans of head and abdomen-pelvis except for fecal impaction. Not had a BM in a week, normally about once a day. Was orthostatic. Due to his age and COVID, will probably need admission for continue hydration. Discharge Plan Discharge Patient Disposition: PLACED OBSERVATION Discharge Problem: Acute dehydration, Vomiting concurrent with and due to infectious disease, COVID-19, Fecal impaction in rectum Did you review [place] [employer] for ALL controlled substances?: Not Applicable ED Provider: KAREY TELLES Condition: Fair Physician Progress Note: []
[2023-06-01 22:09] LABS: BASOPHILS % (AUTO) 0.3 % (0.0-3.0); HEMATOCRIT 35.6 % (42.0-52.0); HEMOGLOBIN 11.4 g/dl (14.0-18.0); IMMATURE GRANULOCYTE % (AUTO) 0.3 % (0.0-5.0); LYMPHOCYTES # (AUTO) 0.4 K/uL (0.60-3.4); MEAN CORPUSCULAR HEMOGLOBIN 34.5 pg (27.0-31.0); MEAN CORPUSCULAR VOLUME 107.9 fl (80.0-94.0); MONOCYTES # (AUTO) 0.6 K/uL (0.4-2.0); MONOCYTES % (AUTO) 17.2 (0-10); NEUTROPHILS # (AUTO) 2.6 K/ul (2.0-6.9); NEUTROPHILS % (AUTO) 72.2 % (42.2-75.2); PLATELET COUNT 139 10^3/uL (140-440); RDW COEFFICIENT OF VARIATION 16.2 % (11.6-14.8); WHITE BLOOD COUNT 3.61 K/ul (4.2-10.2)
[2023-06-01 22:26] LABS: ALANINE AMINOTRANSFERASE 21.2 U/L (0-50); ALBUMIN 4.01 g/dL (3.5-5.0); ALKALINE PHOSPHATASE 75.4 U/L (56-119); ASPARTATE AMINO TRANSFERASE 33.7 U/L (17-59); BILIRUBIN,TOTAL 0.84 mg/dL (0.2-1.3); BLOOD UREA NITROGEN 20.4 mg/dL (9-20); CALCIUM 9.33 mg/dL (8.4-10.2); CARBON DIOXIDE 23.7 mmol/L (22-30.0); CHLORIDE 107.6 mmol/L (98-107); CREATININE 1.16 mg/dL (0.60-1.10); GLUCOSE 152.8 mg/dL (74-106); POTASSIUM 4.1 mmol/L (3.5-5.1); SODIUM 138.6 mmol/L (134.5-145); TOTAL PROTEIN 7.61 g/dL (6.3-8.2)
[2023-06-01 22:27] LABS: SARS COV-2 RNA RAPID NAAT POSITIVE (NEGATIVE)
--- NOTE | 2023-06-01 23:17 | CT ---
EXAM: CT BRAIN WITHOUT CONTRAST HISTORY: Headache and vomiting TECHNIQUE: CT of the brain without intravenous contrast. FINDINGS: There is no acute hemorrhage midline shift or mass effect. Mild ventriculomegaly with thi rd ventricle diameter 1.3 cm. Lateral ventricles appear generally normal. Generalized involutional atrophy, mild. Chronic microvascular changes white matter tracts, mild. The bony cranium appears no rmal. The visualized paranasal sinuses are clear. Soft tissues without significant abnormality. IMPRESSION: 1. No acute intracranial abnormality is seen 2. Mild ventriculomegaly mostly involving the third ventricle All CT scans are performed using dose optimization techniques as appropriate to the performed exam an d include at least one of the following: Automated exposure control, adjustment of the mA and/or kV according t o size, and the use of iterative reconstruction technique.
[2023-06-01 23:34] LABS: BILIRUBIN,URINE 1+ (NEGATIVE); CLARITY,URINE Clear (CLEAR); COLOR,URINE Yellow (YELLOW); GLUCOSE, URINE (UA) Negative (NEGATIVE); KETONES,URINE Negative (NEGATIVE); LEUKOCYTE ESTERASE ,URINE Negative (NEGATIVE); NITRITE,URINE Negative (NEGATIVE); PROTEIN,URINE 2+ (NEGATIVE); SQUAMOUS EPITHELIAL CELL,UR NOT PRESENT (0-5); URINE, BLOOD Trace-intact (NEGATIVE)
[2023-06-01 23:35] LABS: MUCUS,URINE TRACE (NOT PRESENT); URINE RBC, MICROSCOPIC 0-2 (0-2)
--- NOTE | 2023-06-01 23:35 | CT ---
EXAM: CT OF THE ABDOMEN AND PELVIS WITH IV CONTRAST. HISTORY: Abdominal pain with vomiting. PROCEDURE: After the intravenous injection of contrast contiguous axial CT images of the abdomen and pelvis were obtained with coronal and sagittal reformats. All CT scans are performed using dose opt imization techniques as appropriate to a performed exam including the following: Automated exposure c ontrol, Adjustment of the mA and/or kV according to patient size, Use of iterative reconstruction mateusz hnique. FINDINGS: The liver is normal in appearance. The gallbladder is surgically absent. There is atroph y of the pancreas. The spleen, adrenal glands and left kidney are normal in appearance. There is a nonobstructive calcification in the right kidney. The abdominal aorta is within normal limits in siz e. There is a small hiatal hernia. The appendix is normal in appearance. There is fecal stasis in the colon. There is fecal impaction in the proximal rectum which measures 6.5 cm in diameter. No fr ee fluid or free air in the abdomen or pelvis. The bladder is adequately filled and normal in appear ance. The seminal vesicles are unremarkable. The prostate gland is enlarged measuring 5.6 cm. Ther e are small bilateral inguinal hernias containing only fat. There are degenerative changes in the sp ine. Impression: Rectal fecal impaction as described. Colonic fecal stasis. Small hiatal hernia. Pancreatic atrophy. Nonobstructive right nephrolithiasis. Prostatic hypertrophy as described. Small bilateral inguinal hernias as described. Cholecystectomy. All CT scans are performed using dose optimization techniques as appropriate to the performed exam an d include at least one of the following: Automated exposure control, adjustment of the mA and/or kV according t o size, and the use of iterative reconstruction technique.
[2023-06-02] MEDS ORDERED: DECADRON IVP ONE (00:20)
[2023-06-02] MEDS ORDERED: LACTATED RINGERS 1,000 ML IV STA (00:37)
[2023-06-02] MEDS ORDERED: ZOFRAN 4 MG/2 ML IVP PRN (00:44)
[2023-06-02] MEDS ORDERED: VITAMIN B-12 IM SCH (01:00)
[2023-06-02 02:17] VITALS: BMI 35.6
[2023-06-02 06:02] LABS: BASOPHILS % (AUTO) 0.3 % (0.0-3.0); HEMOGLOBIN 10.4 g/dl (14.0-18.0); IMMATURE GRANULOCYTE % (AUTO) 0.5 % (0.0-5.0); LYMPHOCYTES # (AUTO) 0.4 K/uL (0.60-3.4); LYMPHOCYTES % (AUTO) 9.4 (10.0-50.0); MEAN CORPUSCULAR HGB CONC 32.5 (31.8-35.4); MEAN CORPUSCULAR VOLUME 107.7 fl (80.0-94.0); MONOCYTES # (AUTO) 0.3 K/uL (0.4-2.0); MONOCYTES % (AUTO) 6.3 (0-10); NEUTROPHILS # (AUTO) 3.3 K/ul (2.0-6.9); NEUTROPHILS % (AUTO) 83.5 % (42.2-75.2); PLATELET COUNT 131 10^3/uL (140-440); RDW COEFFICIENT OF VARIATION 16.2 % (11.6-14.8); RED BLOOD COUNT 2.97 10^6/ul (4.70-6.10); WHITE BLOOD COUNT 3.94 K/ul (4.2-10.2)
[2023-06-02 06:27] LABS: ALANINE AMINOTRANSFERASE 18.7 U/L (0-50); ALBUMIN 3.49 g/dL (3.5-5.0); ALKALINE PHOSPHATASE 68.9 U/L (56-119); BILIRUBIN,TOTAL 0.61 mg/dL (0.2-1.3); BLOOD UREA NITROGEN 17.4 mg/dL (9-20); CALCIUM 8.69 mg/dL (8.4-10.2); CARBON DIOXIDE 24.3 mmol/L (22-30.0); CHLORIDE 107.1 mmol/L (98-107); CREATININE 1.01 mg/dL (0.60-1.10); GLUCOSE 145.6 mg/dL (74-106); POTASSIUM 3.95 mmol/L (3.5-5.1); SODIUM 136.6 mmol/L (134.5-145); TOTAL PROTEIN 6.79 g/dL (6.3-8.2)
[2023-06-02] MEDS ORDERED: SYNTHROID PO SCH (06:30)
[2023-06-02] MEDS ORDERED: ASPIRIN CHEWABLE PO SCH (08:30)
[2023-06-02] MEDS ORDERED: VITAMIN C PO SCH (09:00)
[2023-06-02] MEDS ORDERED: PROTONIX IV IVP SCH (09:00)
[2023-06-02] MEDS ORDERED: COLACE PO SCH (09:00)
[2023-06-02] MEDS ORDERED: XARELTO PO SCH (09:00)
[2023-06-02] MEDS ORDERED: CALCIUM 500 + VIT D 5 MCG (200 IU) TABLET PO SCH (09:00)
[2023-06-02] MEDS ORDERED: DECADRON IVP SCH (09:00)
[2023-06-02] MEDS ORDERED: ZYLOPRIM PO SCH (09:00)
[2023-06-02] MEDS ORDERED: LOPRESSOR PO SCH (09:00)
[2023-06-02] MEDS ORDERED: DULCOLAX PO ONE (11:48)
[2023-06-02] MEDS ORDERED: VEKLURY 200 MG in SODIUM CHLORIDE 250 ML IV ONE (11:57)
--- NOTE | 2023-06-02 12:09 | PCM.SS ---
Provider Provider: TAYLER SHIPLEY PA-C, [facility] Admission Date Admission Date: 06/01/23 Discharge Date Discharge Date: 06/02/23 Primary Care Physician Primary Care Physician: GLENIS JONAS Chief Complaint Reason For Visit: COVID +/DEHYDRATION/VOMITING/FECAL IMPACTION History of Present Illness History of Present Illness: Admitted 06/02/23 00:36, this 82 year old /WHITE/M with pmhx of a fib, hemochromatosis, gout, b12 deficiency, hypothyroidism, gerd who presented to the ER with 3 day history of n/v. They had been in [place] on vacation and several members started testing positive for covid. Patient denies respiratory symptoms. He has hx of covid vaccination. He was evaluated in ER and found to be covid positive and mild dehydration. Patient was admitted to med surg in observation. This morning patient denies n/v. He was able to tolerate breakfast. Discussed his constipation noted on ct. He would like to continue trying to relieve this at home. Discussed with his covid diagnosis and comorbidities he has the potential to worsen throughout the course. At this time patient is not hypoxic. Dexamethasone was discontinued. Paxlovid is not a good option for him due to his blood thinner. We discussed risks vs benefits of remdesivir. He and would like to continue with this for the 3 day course. Will also send in zofran in case the nausea returns. Pt is agreeable to this. Recommended continued covid isolation. [facility] Medical History Atrial fibrillation I48.91 - Unspecified atrial fibrillation (ICD-10) Hemochromatosis E83.119 - Hemochromatosis, unspecified (ICD-10) Joint stiffness of knee M25.669 - Stiffness of unspecified knee, not elsewhere classified (ICD-10) Surgical History History of arthroplasty of left knee Z96.652 - PRESENCE OF LEFT ARTIFICIAL KNEE JOINT (ICD-10) History of cardiac catheterization Z98.890 - Other specified postprocedural states (ICD-10) History of cholecystectomy Z90.49 - Acquired absence of other specified parts of digestive tract (ICD- 10) Social History Smoking and tobacco status: Former smoker Tobacco: How many years used: 1 (smoked for 1.5 years quit 1967) Smoking status stop date: 04/20/1968 Alcohol intake: current Alcohol intake frequency: holidays/special occasions only Previous attempts at quittin (rare occasional social drink) Medications Mecications: Medications at Discharge (Home Meds & RX) allopurinol 300 mg tablet 300 mg PO DAILY 07/06/15 aspirin 81 mg chewable tablet 81 mg PO DAILYWM 07/06/15 folic acid 1 mg tablet 1 mg PO DAILY 07/06/15 levothyroxine 75 mcg tablet (Synthroid) 75 mcg PO QDAC 07/07/15 omeprazole 20 mg capsule,delayed release 20 mg PO DAILY 06/07/18 calcium carb,cit ER 600 mg-vit D3 12.5 mcg (500 unit) tablet,ext.rel 1 tab PO DAILY 09/23/18 cyanocobalamin (vitamin B-12) 1,000 mcg/mL injection solution 1,000 mcg INJ MONTHLY 09/23/18 cyanocobalamin (vitamin B-12) 2,500 mcg chewable tablet 2,500 mcg PO DAILY 09/23/18 docusate sodium 100 mg capsule 100 mg PO DAILY ##30 11/20/18 dicyclomine 10 mg capsule 10 mg PO TID PRN Abdominal Pain #20 caps 06/21/20 ondansetron HCl 4 mg tablet 4 mg PO Q8H PRN Nausea / Vomiting #14 tabs 06/21/20 furosemide 40 mg tablet 40 mg PO MOWEFR 06/01/23 furosemide 40 mg tablet 40 mg PO SUTUTHSA PRN edema 06/01/23 magnesium hydroxide 400 mg/5 mL oral suspension (Milk of Magnesia) 30 ml PO DAILY PRN constipation 06/01/23 metoprolol tartrate 50 mg tablet 25 mg PO BID 06/01/23 rivaroxaban 20 mg tablet (Xarelto) 20 mg PO DAILY 06/01/23 tramadol 50 mg tablet 50 mg PO Q8H PRN pain 06/01/23 Allergies Allergies Allergy/AdvReac Type Severity Reaction Status Date / Time codeine AdvReac Mild N/V Verified 06/01/23 21:45 morphine AdvReac Mild N/V Verified 06/01/23 21:45 tramadol AdvReac Mild confusion Verified 06/01/23 21:45 hydrocodone AdvReac confusion Verified 06/01/23 21:45 Review of Systems Constitutional: Reports Weakness; Denies Fever Head: Reports Normocephalic and Atraumatic Cardiovascular: Denies Chest pain or Chest Pressure Respiratory: Denies Cough or Shortness of air Gastrointestinal: Reports Nausea, Vomiting, Constipation and Abdominal pain; Denies Diarrhea Genitourinary: Denies Dysuria or Hematuria Neurological: Denies Headache or Syncope Physical Examination Appearance: Positive Well-appearing, Well-nourished, No Apparent Distress and Alert and Oriented x3 Head: Positive Normocephalic and Atraumatic Neck: Positive Supple and Trachea Midline Heart: Positive RRR Respiratory: Positive Breath Sounds Clear, Bilaterally; Negative Crackles, Rhonchi or Wheezes GI/: Positive Soft, Nontender, Bowel sounds normal and No Distention Extremities: Positive Edema (+chronic, unchanged from baseline per patient ) Neurological: Positive Cranial nerves intact, Alert and Oriented Labs This Visit Labs This Visit: Labs This Visit 06/01/23 06/01/23 06/01/23 21:44 21:45 23:16 WBC 3.61 L RBC 3.30 L Hgb 11.4 L Hct 35.6 L MCV 107.9 H MCH 34.5 H MCHC 32.0 RDW Coeff of [place] 16.2 H Plt Count 139 L Immature Gran % (Auto) 0.3 Neut % (Auto) 72.2 Lymph % (Auto) 10.0 [place] % (Auto) 17.2 H Eos % (Auto) 0.0 Baso % (Auto) 0.3 Neut # (Auto) 2.6 Lymph # (Auto) 0.4 L [place] # (Auto) 0.6 Eos # (Auto) 0.0 Baso # (Auto) 0.0 Immature Gran # (Auto) 0.0 Sodium 138.6 Potassium 4.10 Chloride 107.6 H Carbon Dioxide 23.7 Anion Gap 11.40 BUN 20.4 H Creatinine 1.16 H Estimated GFR (MDRD) 61.00 BUN/Creatinine Ratio 17.58 Glucose 152.8 H Calcium 9.33 Total Bilirubin 0.84 AST 33.7 ALT 21.2 Alkaline Phosphatase 75.4 Troponin I 0.021 NT-Pro-B Natriuret Pep Total Protein 7.61 Albumin 4.01 Globulin 3.60 Albumin/Globulin Ratio 1.11 Urine Color Yellow Urine Clarity Clear Urine pH 5.0 Ur Specific [place] >=1.030 Urine Protein 2+ H Urine Glucose (UA) Negative Urine Ketones Negative Urine Blood Trace-intact H Urine Nitrite Negative Urine Bilirubin 1+ H Urine Urobilinogen 2.0 H Ur Leukocyte Esterase Negative Urine Microscopic RBC 0-2 Ur Squamous Epith Cells Not present Urine Mucus Trace SARS CoV-2 RNA Rapid MALIKA 06/01/23 06/02/23 Unknown 05:57 WBC 3.94 L RBC 2.97 L Hgb 10.4 L Hct 32.0 L MCV 107.7 H MCH 35.0 H MCHC 32.5 RDW Coeff of [place] 16.2 H Plt Count 131 L Immature Gran % (Auto) 0.5 Neut % (Auto) 83.5 H Lymph % (Auto) 9.4 L [place] % (Auto) 6.3 Eos % (Auto) 0.0 Baso % (Auto) 0.3 Neut # (Auto) 3.3 Lymph # (Auto) 0.4 L [place] # (Auto) 0.3 L Eos # (Auto) 0.0 Baso # (Auto) 0.0 Immature Gran # (Auto) 0.0 Sodium 136.6 Potassium 3.95 Chloride 107.1 H Carbon Dioxide 24.3 Anion Gap 9.15 BUN 17.4 Creatinine 1.01 Estimated GFR (MDRD) 71.00 BUN/Creatinine Ratio 17.22 Glucose 145.6 H Calcium 8.69 Total Bilirubin 0.61 AST 32.0 ALT 18.7 Alkaline Phosphatase 68.9 Troponin I NT-Pro-B Natriuret Pep 679 H Total Protein 6.79 Albumin 3.49 L Globulin 3.30 Albumin/Globulin Ratio 1.05 Urine Color Urine Clarity Urine pH Ur Specific [place] Urine Protein Urine Glucose (UA) Urine Ketones Urine Blood Urine Nitrite Urine Bilirubin Urine Urobilinogen Ur Leukocyte Esterase Urine Microscopic RBC Ur Squamous Epith Cells Urine Mucus SARS CoV-2 RNA Rapid MALIAK Positive H Imaging Imaging: EXAM: CT BRAIN WITHOUT CONTRAST HISTORY: Headache and vomiting TECHNIQUE: CT of the brain without intravenous contrast. FINDINGS: There is no acute hemorrhage midline shift or mass effect. Mild ventriculomegaly with third ventricle diameter 1.3 cm. Lateral ventricles appear generally normal. Generalized involutional atrophy, mild. Chronic microvascular changes white matter tracts, mild. The bony cranium appears normal. The visualized paranasal sinuses are clear. Soft tissues without significant abnormality. IMPRESSION: 1. No acute intracranial abnormality is seen 2. Mild ventriculomegaly mostly involving the third ventricle EXAM: CT OF THE ABDOMEN AND PELVIS WITH IV CONTRAST. HISTORY: Abdominal pain with vomiting PROCEDURE: After the intravenous injection of contrast contiguous axial CT images of the abdomen and pelvis were obtained with coronal and sagittal reformats. All CT scans are performed using dose optimization techniques as appropriate to a performed exam including the following: Automated exposure control, Adjustment of the mA and/or kV according to patient size, Use of iterative reconstruction technique. FINDINGS: The liver is normal in appearance. The gallbladder is surgically absent. There is atrophy of the pancreas. The spleen, adrenal glands and left kidney are normal in appearance. There is a nonobstructive calcification in the right kidney. The abdominal aorta is within normal limits in size. There is a small hiatal hernia. The appendix is normal in appearance. There is fecal stasis in the colon. There is fecal impaction in the proximal rectum which measures 6.5 cm in diameter. No free fluid or free air in the abdomen or pelvis. The bladder is adequately filled and normal in appearance. The seminal vesicles are unremarkable. The prostate gland is enlarged measuring 5.6 cm. There are small bilateral inguinal hernias containing only fat. There are degenerative changes in the spine. Impression: Rectal fecal impaction as described. Colonic fecal stasis. Small hiatal hernia. Pancreatic atrophy. Nonobstructive right nephrolithiasis. Prostatic hypertrophy as described. Small bilateral inguinal hernias as described. Cholecystectomy. Review Review Statement: I have independently reviewed and interpreted the labs/EKGs/imaging that were ordered by the ER provider. I have reviewed all outside records that are available currently in our EMR including imaging/notes/labs from previous visits. Plan Additional Plannin. Nausea and vomiting due to covid 19 - Zofran and fluids. Resolved today. Zofran at discharge. 2. Mild dehydration due to n/v - At baseline today. Push fluids. 3. Covid 19 - Patient would like to do the 3 days of preventative remdesivir. Will give first dose today. Order given for 2nd and 3rd doses on consecutive days. May leave IV in at discharge. Return to ER with worsening symptoms. Pt and agree to plan of care. Unable to do paxlovid due to xarelto. 4. Hypertension - Continue home meds 5. A fib - Continue home meds. 6. Hypothyroidism - Continue levothyroxine 7. Gout - Continue home meds Case discussed with ED Physician, Dr. Brantley. DVT Prophylaxis: Ambulation, XARELTO Advanced Care Plannin minutes spent discussing advance care planning. FULL CODE Admit to: OBS Discussed Plan of Care with Dr. Gavino Chapa. This morning patient denies n/v. He was able to tolerate breakfast. Discussed his constipation noted on ct. He would like to continue trying to relieve this at home. Discussed with his covid diagnosis and comorbidities he has the potential to worsen throughout the course. At this time patient is not hypoxic. Dexamethasone was discontinued. Paxlovid is not a good option for him due to his blood thinner. We discussed risks vs benefits of remdesivir. He and would like to continue with this for the 3 day course. Will also send in zofran in case the nausea returns. Pt is agreeable to this. Recommended continued covid isolation. Discharge diagnosis: 1. N/v due to covid 19, resolved 2. Mild dehydration due to n/v, resolved 3. Covid 19, stable 4. Hypertension, chronic stable 5. A fib, chronic stable 6. Hypothyroidism, chronic stable 7. Gout, chronic stable. Review With Patient Reviewed with Patient and Family: Patient and family have been counseled on condition and care plan and have no immediate questions. I have personally discussed and reviewed the patient's visit/current labs/imaging/decision making with Dr. Gavino Chapa, my supervising attending. Total number of minutes spent with patient [85] min. More than 50% of the time spent with this patient was devoted to counseling and coordination of care. Time of Admission:06/02/23 00:36 Time of Discharge: 06/02/23 1045 Discharge Plan Discharge Discharge Orders: Discharge Patient (ONCE); Ordered 06/02/23 Ordered By: TAYLER SHIPLEY Activity Restrictions/Additional Instructions: DISCHARGE TO HOME DX: NAUSEA VOMITING, COVID PHARMACY: [facility] ACTIVITY: TOLERATED DIET: HEART HEALTHY F/U WITH PCP WITHIN 1 WEEK COVID PRECAUTIONS/ISOLATION RETURN FOR REMDESIVIR INFUSION NEXT TWO DAYS Instructions: Acute Nausea and Vomiting (GEN) Patient Disposition: HOME SELF-CARE Prescriptions: New ondansetron 4 mg tablet,disintegrating 4 mg PO Q8H Qty: 21 0RF Continued aspirin 81 MG tablet,chewable 81 mg PO DAILYWM folic acid 1 MG tablet 1 mg PO DAILY allopurinol 300 MG tablet 300 mg PO DAILY levothyroxine [Synthroid] 75 MCG tablet 75 mcg PO QDAC omeprazole 20 MG capsule,delayed release(DR/EC) 20 mg PO DAILY cyanocobalamin (vitamin B-12) 1,000 MCG/ML solution 1,000 mcg INJ MONTHLY calcium carb and citrate-vitD3 1 EACH tablet extended release 1 tab PO DAILY dicyclomine 10 MG capsule 10 mg PO TID PRN (Reason: Abdominal Pain) Qty: 20 0RF docusate sodium 100 MG capsule 100 mg PO DAILY Qty: 30 0RF metoprolol tartrate 50 mg tablet 25 mg PO BID tramadol 50 mg tablet 50 mg PO Q8H PRN (Reason: pain) furosemide 40 mg tablet 40 mg PO MOWEFR furosemide 40 mg tablet 40 mg PO SUTUTHSA PRN (Reason: edema) Xarelto 20 mg tablet 20 mg PO DAILY Rx Instructions: must administer with evening meal magnesium hydroxide [Milk of Magnesia] 30 ML suspension 30 ml PO DAILY PRN (Reason: constipation) Discontinued cyanocobalamin (vitamin B-12) 2,500 MCG tablet,chewable 2,500 mcg PO DAILY ondansetron HCl [ondansetron HCl] 4 MG tablet 4 mg PO Q8H PRN (Reason: Nausea / Vomiting) Qty: 14 0RF Did you review [place] [employer] for ALL controlled substances?: Not Applicable Discussed opioids are addictive and Narcan is available by prescription or from pharmacy.: No Condition: Stable
[2023-06-02 12:14] LABS: PROTHROMBIN TIME 11.6 SEC (9.3-11.0)
[2023-06-02 14:47] VITALS: BP 108/50; PULSE 71; RESP 26; TEMP 98.2
== END 2023-06-02 15:30 | disposition home or self-care (01) ==
LOC: ED 21:28 → SCU 21:28
PROVIDERS: ADMIT Hospitalist; ATTEND Physician Assistant
DX: M10.9 Gout, unspecified; R53.1 Weakness; R10.9 Unspecified abdominal pain; Z95.0 Presence of cardiac pacemaker; Z99.89 Dependence on other enabling machines and devices; Z74.3 Need for continuous supervision; R11.2 Nausea with vomiting, unspecified; I10 Essential (primary) hypertension; K56.41 Fecal impaction; E03.9 Hypothyroidism, unspecified; E86.0 Dehydration; I48.91 Unspecified atrial fibrillation; U07.1 COVID-19; R07.9 Chest pain, unspecified; R42 Dizziness and giddiness